=== PATIENT | female | born 1990 | race Caucasian/White ===

== ENCOUNTER 2020-07-26 13:24 | Emergency (ER) | payer MEDICAID, SELFPAY ==
--- NOTE | 2020-07-26 13:56 | US_ITS ---
EXAMINATION: US RETROPERITONEAL LIMITED (RENAL ONLY) CLINICAL INFORMATION: Left flank pain and hematuria. COMPARISON: None TECHNIQUE: Grayscale and Doppler ultrasound of the bilateral kidneys was performed. FINDINGS: RIGHT KIDNEY: 11 x 4 x 4.8 cm (SAG x AP x TRV). The kidney is normal in size, contour, and echogenicity. Renal cortical thickness is normal. No calculi or focal parenchymal lesions. No hydronephrosis. LEFT KIDNEY: 11.4 x 5.4 x 5.4 cm (SAG x AP x TRV). The kidney is normal in size, contour, and echogenicity. Renal cortical thickness is normal. No calculi or focal parenchymal lesions. No hydronephrosis. US/US renal BI IMPRESSION: Unremarkable renal ultrasound.
[2020-07-26 13:57] VITALS: BP 116/77; PULSE 78; RESP 16; TEMP 36.7; O2SAT 99; BMI 26.9
--- NOTE | 2020-07-26 13:58 | ED.ABDPAIN ---
HPI - Abdominal Pain General Chief Complaint: Abdominal Pain Stated Complaint: L FLANK PAIN Time Seen by Provider: 07/26/20 13:50 Source: patient Mode of arrival: ambulatory History of Present Illness HPI narrative: 30-year-old female with a past medical history of recent UTI currently on Amoxicillin and Bactrim from [facility] presenting to ED complaining of continued/worsening left flank pain x1 week. Admits pain radiates to left lower abdomen with associated hematuria. Denies fever, chills, nausea/vomiting, dysuria, vaginal bleeding or discharge MD elicited complaint: abdominal pain Related Data Previous Rx's Medication Instructions Recorded cyclobenzaprine 5 mg PO Q8H PRN 5 Days #14 tab 07/26/20 ketorolac 10 mg PO Q6H PRN 4 Days #10 tab 07/26/20 levofloxacin 750 mg PO DAILY 5 Days #5 tab 07/26/20 Allergies Allergy/AdvReac Type Severity Reaction Status Date / Time No Known Allergies Allergy Unverified 05/29/20 18:22 Review of Systems Review of Systems Constitutional: No Weight loss, No Fever, No Chills Cardiovascular: No Chest Pain, No SOB Respiratory: No Cough, No Sputum, No Dyspnea Gastrointestinal: No Nausea, No Vomiting, No Diarrhea, No Constipation,+ Abdominal pain Genitourinary: No irregular bleeding, No Dysuria, + Hematuria, No Urinary Incontinence, No Urgency, +Flank Pain Musculoskeletal: No joint pain, No Myalgias, No Joint Swelling Skin: No Skin Lesions, No rash Yes all other systems are reviewed and are negative Physical Exam Vital Signs: Vital Signs: Last Vital Signs Temp 98.5 F 07/26/20 15:49 Pulse 69 07/26/20 15:49 Resp 20 07/26/20 15:49 BP 116/67 07/26/20 15:49 Pulse Ox 100 07/26/20 15:49 Body Mass Index 26.9 Const: General: cooperative and healthy appearing Orientation/consciousness: patient oriented x3 Limitations: no limitations HENMT: Head: Yes normal to inspection Ears: hearing grossly normal bilaterally General nose exam: Normal external nose present Face and sinus: Yes normal facial exam Eyes: General: appearance normal, both eyes and all related structures EOM: EOMs intact bilaterally Neck: Neck: Yes normal visual inspection Resp: Effort & Inspection: normal respiratory effort Cardio: Rate: regular rate GI: Inspection: Yes normal to inspection Palpation (GI): Soft to palpation, nontender, no guarding and not rigid : General: Yes CVA tenderness on the left Skin: Rashes: no rashes Wounds: no wounds Neuro: General: patient oriented x3 Gait exam (Neuro): Normal gait present Extrem: General: Yes normal to inspection Course Course Course Narrative: -1445--renal ultrasound unremarkable -1600--no leukocytosis, labs otherwise unremarkable, UA pending -1630--on re-evaluation abdomen still soft and nontender, patient still reporting left flank pain -UA not infected> likely from current antibiotic use. due to patient's symptoms and recent diagnosis of UTI, will switch antibiotics to Levaquin to cover pyelo. 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 She verbalized understanding feel safe for discharge home. MDM - Abdominal Pain MDM Narrative Medical decision making narrative: 30-year-old female with a past medical history of recent UTI currently on Amoxicillin and Bactrim from [facility] presenting to ED complaining of continued/worsening left flank pain x1 week. On exam, appears in pain, abdomen soft/nontender, +L CVAT. Concern for pyelo vs renal stone vs infected stone vs UTI. Lower concern for appendicitis/diverticulitis or ovarian pathology Plan: Labs, UA, renal ultrasound, IVF/symptomatic therapies, reassess Lab Data Result diagrams: 07/26/20 14:43 07/26/20 15:49 Labs: Lab Results 07/26/20 07/26/20 07/26/20 Range/Units 14:43 14:43 14:43 WBC 5.0 (4.8-10.8) X10*3/uL RBC 4.16 L (4.20-5.50) X10*6/uL Hgb 13.1 (12.0-16.0) g/dl Hct 39.0 (37-47) % MCV 93.8 (80-98) fL MCH 31.5 (27.0-33.0) pg MCHC 33.6 (31.0-35.0) g/dl RDW 12.1 (11.0-16.0) % Plt Count 259 (160-400) X10*3/uL MPV 10.7 (9.4-12.3) fL Immature Gran % (Auto) 1.0 H (0.0-0.4) % Neut % (Auto) 60.3 (45-73) % Lymph % (Auto) 27.2 (20-40) % [place] % (Auto) 9.7 (2-11) % Eos % (Auto) 1.4 (0-4) % Baso % (Auto) 0.4 (0-2) % Lymph # (Auto) 1.4 (1.2-4.9) X10*3/uL [place] # (Auto) 0.5 (0.1-1.2) X10*3/uL Eos # (Auto) 0.1 (0.0-0.4) X10*3/uL Baso # (Auto) 0.0 (0.0-0.2) X10*3/uL Abs Immat Gran (auto) 0.05 H (0.00-0.03) X10*3/uL Absolute Neuts (auto) 3.0 (2.0-8.3) X10*3/uL Absolute Nucleated RBC 0.000 (0.0-0.012) X10*3/uL Nucleated RBC % (auto) 0.0 (0.0-0.2) /100WBC Hold Blue Top SEE NOTE Sodium Cancelled Potassium Cancelled Chloride Cancelled Carbon Dioxide Cancelled Anion Gap Cancelled BUN Cancelled Creatinine Cancelled Estim Creat Clear Calc Cancelled Estimated GFR Cancelled Random Glucose Cancelled Calcium Cancelled Magnesium Cancelled Total Bilirubin Cancelled Direct Bilirubin Cancelled AST Cancelled ALT Cancelled Alkaline Phosphatase Cancelled Total Protein Cancelled Albumin Cancelled Urine Color Urine Appearance Urine pH (5.0-8.0) Ur Specific [place] (1.005-1.025) Urine Protein (NEG-TRACE) MG/DL Urine Glucose (UA) (NEG) MG/DL Urine Ketones (NEG) MG/DL Urine Blood (NEG) Urine Nitrite (NEG) Ur Leukocyte Esterase (NEG) Urine RBC (0) /HPF Urine WBC (0-4) /HPF Ur Squamous Epith Cells /LPF Urine Bacteria /LPF Urine Test (NEGATIVE) 07/26/20 07/26/20 Range/Units 15:49 16:39 WBC (4.8-10.8) X10*3/uL RBC (4.20-5.50) X10*6/uL Hgb (12.0-16.0) g/dl Hct (37-47) % MCV (80-98) fL MCH (27.0-33.0) pg MCHC (31.0-35.0) g/dl RDW (11.0-16.0) % Plt Count (160-400) X10*3/uL MPV (9.4-12.3) fL Immature Gran % (Auto) (0.0-0.4) % Neut % (Auto) (45-73) % Lymph % (Auto) (20-40) % [place] % (Auto) (2-11) % Eos % (Auto) (0-4) % Baso % (Auto) (0-2) % Lymph # (Auto) (1.2-4.9) X10*3/uL [place] # (Auto) (0.1-1.2) X10*3/uL Eos # (Auto) (0.0-0.4) X10*3/uL Baso # (Auto) (0.0-0.2) X10*3/uL Abs Immat Gran (auto) (0.00-0.03) X10*3/uL Absolute Neuts (auto) (2.0-8.3) X10*3/uL Absolute Nucleated RBC (0.0-0.012) X10*3/uL Nucleated RBC % (auto) (0.0-0.2) /100WBC Hold Blue Top Sodium 140 Potassium 4.2 Chloride 110 H Carbon Dioxide 20 L Anion Gap 14 BUN 8 L Creatinine 0.72 Estim Creat Clear Calc 124.0 Estimated GFR > 60 Random Glucose 78 Calcium 8.1 L Magnesium 1.9 Total Bilirubin 0.5 Direct Bilirubin 0.2 AST 16 ALT 9 Alkaline Phosphatase 54 Total Protein 6.9 Albumin 4.0 Urine Color YELLOW Urine Appearance CLEAR Urine pH 6.0 (5.0-8.0) Ur Specific [place] 1.010 (1.005-1.025) Urine Protein NEG (NEG-TRACE) MG/DL Urine Glucose (UA) NEG (NEG) MG/DL Urine Ketones 15 (NEG) MG/DL Urine Blood TRACE (NEG) Urine Nitrite NEG (NEG) Ur Leukocyte Esterase NEG (NEG) Urine RBC 0-2 (0) /HPF Urine WBC 1-4 (0-4) /HPF Ur Squamous Epith Cells TRACE /LPF Urine Bacteria 1+ /LPF Urine Test NEGATIVE (NEGATIVE) Discharge Plan Discharge Clinical Impression: Pyelonephritis, Myalgia Patient Disposition: Home, Self-Care Instructions: Kidney Infection (ED) Additional Instructions: Your blood work and ultrasound were reassuring today in the ED You possibly have a kidney infection Levaquin as antibiotic, take as prescribed Stop taking previously prescribed antibiotics Cyclobenzaprine is a muscle relaxer, take at night as makes you drowsy, do not drive, drink alcohol, or operate machinery while taking it in line Ketoralac is an anti-inflammatory pain medication, take with food Follow up with her doctor If pain persists or worsens, you develop abdominal pain, nausea/vomiting, or fever return to the ED Prescriptions: New levofloxacin 750 mg tablet 750 mg PO DAILY 5 Days Qty: 5 RF: 0 ketorolac 10 mg tablet 10 mg PO Q6H PRN (Reason: pain) 4 Days Qty: 10 RF: 0 cyclobenzaprine 5 mg tablet 5 mg PO Q8H PRN (Reason: pain (scale score 7-10)) 5 Days Qty: 14 RF: 0 Referrals: Tracy Lei MD [Primary Care Provider] - 2 days [facility] Past Medical History Attestation statement: The following information was validated with the patient. Social History Social History Alcohol intake: current Alcohol intake frequency: a few times a month Smoking Status: Never smoker Use of substances other than those prescribed or required for medical reasons: No Advance Directives: No Advance Directives Information Provided: No
[2020-07-26] MEDS: 0.9 % Sodium Chloride 1,000 ML 999 ML IVCONT (14:48)
[2020-07-26] MEDS: Ketorolac Tromethamine 15 MG/ML VIAL IVPUSH ×2 (14:48→16:34)
[2020-07-26 14:50] LABS: Basophils Percent Auto 0.4 % (0-2); Eosinophils Absolute Auto 0.1 X10*3/uL (0.0-0.4); Eosinophils Percent Auto 1.4 % (0-4); Hemoglobin 13.1 g/dl (12.0-16.0); Imm Gran Abs Auto 0.05 X10*3/uL (0.00-0.03); Lymphocytes Absolute Auto 1.4 X10*3/uL (1.2-4.9); Lymphocytes Percent Auto 27.2 % (20-40); MANUAL DIFF FLAG NO; Mean Corpuscular HGB Conc 33.6 g/dl (31.0-35.0); Mean Corpuscular Hemoglobin 31.5 pg (27.0-33.0); Mean Corpuscular Volume 93.8 fL (80-98); Mean Platelet Volume 10.7 fL (9.4-12.3); Monocytes Absolute Auto 0.5 X10*3/uL (0.1-1.2); Monocytes Percent Auto 9.7 % (2-11); Neutrophils Percent Auto 60.3 % (45-73); Platelet Count 259 X10*3/uL (160-400); Red Blood Count 4.16 X10*6/uL (4.20-5.50); Red Cell Distribution Width 12.1 % (11.0-16.0)
[2020-07-26 15:49] VITALS: BP 116/67; PULSE 69; RESP 20; TEMP 36.9; O2SAT 100
[2020-07-26 16:00] VITALS: RESP 16
[2020-07-26 16:24] LABS: Alanine Aminotransferase 9 U/L (0-31); Alkaline Phosphatase 54 U/L (39-117); Anion Gap 14 (12-20); Aspartate Amino Transferase 16 U/L (5-31); Bilirubin Direct 0.2 mg/dL (0.0-0.5); Bilirubin Total 0.5 mg/dL (0.0-1.0); Blood Urea Nitrogen 8 mg/dL (9-16); Calcium 8.1 mg/dL (8.4-10.2); Carbon Dioxide 20 mmol/L (22-29); Chloride 110 mmol/L (96-108); Estimated Glomerular Filt Rate > 60; Glucose Random 78 mg/dL (60-115); Magnesium 1.9 mg/dL (1.6-2.6); Potassium 4.2 mmol/l (3.3-5.1); Sodium 140 mmol/L (135-145); Total Protein 6.9 g/dL (6.5-8.0)
[2020-07-26 16:43] LABS: Glucose Urine UA NEG (NEG); Leukocyte Esterase Urine NEG (NEG); Nitrite Urine NEG (NEG); Urine Blood TRACE (NEG); Urine Ketones 15 MG/DL (NEG); Urine Protein NEG (NEG-TRACE)
[2020-07-26 16:58] LABS: Appearance Urine CLEAR; Color Urine YELLOW
[2020-07-26 17:00] LABS: UPreg QC Valid YES; Urine Pregnancy NEGATIVE (NEGATIVE)
[2020-07-26 17:11] LABS: Bacteria Urine 1+ /LPF; RBC Urine 0-2 /HPF (0); Squamous Epithelial Cell Urine TRACE /LPF
[2020-07-26 17:37] VITALS: BP 121/71; PULSE 69; RESP 16; O2SAT 99
[2020-07-26] MEDS: Cyclobenzaprine HCl 5 MG TABLET PO (17:51)
== END 2020-07-26 18:07 | disposition home or self-care (01) ==
PROVIDERS: Physician Assistant; Emergency Provider Emergency Medicine; PCP Internal Medicine
DX: N10 Acute pyelonephritis (principal); M79.10 Myalgia, unspecified site; M54.5 Low back pain; Z79.899 Other long term (current) drug therapy
CPT/HCPCS: 36415; 76775; 80048; 80076; 81001; 81025; 83735; 85025; 96361; 96374; 96376; 99284; J1885

== ENCOUNTER 2020-08-27 15:42 | Outpatient (REF) | payer MEDICAID, SELFPAY | END 2020-08-27 15:43 | disposition home or self-care (01) | LOC: HO.LAB 15:42 | PROVIDERS: Visit Provider Internal Medicine | DX: Z20.828 Contact with and (suspected) exposure to other viral communicable diseases (principal) | CPT/HCPCS: C9803; U0003 ==

== ENCOUNTER → 2020-08-28 13:48 | Outpatient (BNVA) | payer MEDICAID, SELFPAY | PROVIDERS: PCP Internal Medicine; Referring Provider Internal Medicine; Visit Provider Urology | DX: Z76.89 Persons encountering health services in other specified circumstances (principal) | CPT/HCPCS: 99202 ==

== ENCOUNTER 2020-08-30 10:09 | Outpatient (REF) | payer MEDICAID, SELFPAY ==
[2020-08-30 10:41] LABS: MANUAL DIFF FLAG NO
[2020-08-30 10:43] LABS: Basophils Percent Auto 0.9 % (0-2); Eosinophils Absolute Auto 0.1 X10*3/uL (0.0-0.4); Eosinophils Percent Auto 3.3 % (0-4); Hematocrit 36.8 % (37-47); Hemoglobin 12.5 g/dl (12.0-16.0); Imm Gran Abs Auto 0.01 X10*3/uL (0.00-0.03); Imm Gran Pct Auto 0.3 % (0.0-0.4); Lymphocytes Absolute Auto 1.1 X10*3/uL (1.2-4.9); Lymphocytes Percent Auto 32.5 % (20-40); Mean Corpuscular Hemoglobin 31.6 pg (27.0-33.0); Mean Corpuscular Volume 92.9 fL (80-98); Mean Platelet Volume 10.3 fL (9.4-12.3); Monocytes Absolute Auto 0.5 X10*3/uL (0.1-1.2); Monocytes Percent Auto 15.7 % (2-11); Neutrophils Absolute Auto 1.6 X10*3/uL (2.0-8.3); Neutrophils Percent Auto 47.3 % (45-73); Platelet Count 238 X10*3/uL (160-400); Red Blood Count 3.96 X10*6/uL (4.20-5.50); Red Cell Distribution Width 11.7 % (11.0-16.0); White Blood Count 3.4 X10*3/uL (4.8-10.8)
[2020-08-30 11:13] LABS: Alanine Aminotransferase 7 U/L (0-31); Albumin Level 4.1 g/dL (3.5-5.0); Alkaline Phosphatase 57 U/L (39-117); Anion Gap 10 (12-20); Aspartate Amino Transferase 12 U/L (5-31); Bilirubin Total 0.4 mg/dL (0.0-1.0); Blood Urea Nitrogen 10 mg/dL (9-16); Calcium 8.8 mg/dL (8.4-10.2); Carbon Dioxide 26 mmol/L (22-29); Chloride 106 mmol/L (96-108); Cholesterol 136 mg/dL; Estimated Glomerular Filt Rate > 60; Glucose Random 96 mg/dL (60-115); HDL Cholesterol 60 mg/dL; LDL Cholesterol Calculated 70 mg/dl; Potassium 4.2 mmol/l (3.3-5.1); Sodium 138 mmol/L (135-145); Triglycerides 34 mg/dL
[2020-08-30 11:17] LABS: Estimated Average Glucose 103 mg/dL; Hemoglobin A1c % 5.2 %
[2020-08-30 11:31] LABS: Vitamin D 25-OH Total 21.1 ng/mL (>30)
== END 2020-08-30 10:10 | disposition home or self-care (01) ==
LOC: HO.LAB 10:09
PROVIDERS: PCP Nurse Practitioner Family; Visit Provider Nurse Practitioner Family
DX: F41.8 Other specified anxiety disorders (principal); K59.00 Constipation, unspecified
CPT/HCPCS: 36415; 80053; 80061; 82306; 83036; 84443; 85025

== ENCOUNTER 2020-09-01 13:19 | Outpatient (REF) | payer MEDICAID, SELFPAY ==
--- NOTE | 2020-09-01 13:26 | CT_ITS ---
EXAMINATION: CT ABDOMEN AND PELVIS WITHOUT CONTRAST CLINICAL INFORMATION: Abdominal pain, frequency of micturition. COMPARISON: Ultrasound renal 07/26/2020 TECHNIQUE: Multidetector volumetric imaging was performed from the superior aspect of the liver through the pubic symphysis. Sagittal and coronal reformatted images were obtained on the technologist's workstation. This CT examination was performed using dose optimization techniques as appropriate, variously including the following: *Automated exposure control *Adjustment of mA and/or kV according to patient size (this includes techniques or standardized protocols for targeted exams where dose is matched to indication/reason for exam; i.e. extremities or head) *Use of iterative reconstruction technique DLP: 486 mGy-cm FINDINGS: LUNG BASES: The visualized lung bases are unremarkable. LIVER, GALLBLADDER, AND BILIARY TREE: The liver is normal in size, shape, and attenuation. No focal hepatic lesion or biliary ductal dilatation is present. The gallbladder is unremarkable with no evidence of radiopaque gallstones, gallbladder wall thickening, or obvious pericholecystic inflammatory changes. PANCREAS: Unremarkable. SPLEEN: Unremarkable. ADRENAL GLANDS: There is a 9 mm hypodensity medial limb right adrenal gland measuring 23 Hounsfield units on axial image 148/6. Left adrenal gland is unremarkable. KIDNEYS AND URETERS: The kidneys are normal in size, shape, and attenuation. No hydronephrosis, hydroureter, or calculi seen. No perinephric stranding. BLADDER: The bladder is nondistended and appears unremarkable. GASTROINTESTINAL TRACT: Scattered stool is seen throughout the colon without distention. The appendix and the small bowel loops are normal caliber. The stomach is distended with recently ingested food. ABDOMINAL WALL: No significant hernia is appreciated. LYMPH NODES: Normal. VASCULAR: Unremarkable. PELVIC VISCERA: There is a 3.4 x 3.3 cm left ovarian cyst. The uterus is anteverted and appears unremarkable. No solid mass or free fluid seen. No abnormal pelvic lymph nodes. A punctate calcification is seen in the left adnexa axial image 547/6 likely within the fallopian tube on the lateral fundal uterus. It is of no consequence. OSSEOUS STRUCTURES: Unremarkable. CT/CT abdomen pelvis wo con IMPRESSION: 1. No acute intra-abdominal process seen. 2. Left ovarian 3.4 cm cyst noted.
== END 2020-09-01 13:20 | disposition home or self-care (01) ==
LOC: HO.CT 13:19
PROVIDERS: Visit Provider Emergency Medicine
DX: R10.9 Unspecified abdominal pain (principal); R35.0 Frequency of micturition
CPT/HCPCS: 74176

== ENCOUNTER 2021-02-02 15:38 | Outpatient (REF) | payer MEDICAID, SELFPAY ==
--- NOTE | ~2021-02-02 | XR_ITS ---
EXAMINATION: XR LUMBOSACRAL SPINE WITH OBLIQUES CLINICAL INFORMATION: Lower back pain. COMPARISON: CT abdomen/pelvis dated 09/01/2020. TECHNIQUE: AP, lateral, coned-down, bilateral oblique views of the lumbosacral spine. FINDINGS: The vertebral bodies and posterior elements are normal. The disc spaces are preserved and the vertebral alignment is normal. The paraspinal soft tissues are normal. XR/XR lumbar spine 4V min IMPRESSION: Unremarkable examination.
== END 2021-02-02 15:39 | disposition home or self-care (01) ==
LOC: HO.XRAY 15:38
PROVIDERS: PCP Nurse Practitioner Family; Visit Provider Nurse Practitioner Family
DX: M54.5 Low back pain (principal)
CPT/HCPCS: 72110

== ENCOUNTER 2021-02-25 16:18 | Outpatient (REF) | payer MEDICAID, SELFPAY ==
--- NOTE | ~2021-02-25 | US_ITS ---
EXAMINATION: US RETROPERITONEAL LIMITED (RENAL ONLY) CLINICAL INFORMATION: History of hematuria. COMPARISON: CT abdomen and pelvis 09/01/2020. Renal ultrasound 07/26/2020. TECHNIQUE: Real-time imaging of the kidneys. FINDINGS: RIGHT KIDNEY: 11.0 x 4.5 x 4.8 cm (SAG x AP x TRV). The kidney is normal in size, contour, and echogenicity. Renal cortical thickness is normal. No calculi or focal parenchymal lesions. No hydronephrosis. LEFT KIDNEY: 10.8 x 4.8 x 5.3 cm (SAG x AP x TRV). The kidney is normal in size, contour, and echogenicity. Renal cortical thickness is normal. No calculi or focal parenchymal lesions. No hydronephrosis. US/US renal BI IMPRESSION: Normal renal ultrasound.
== END 2021-02-25 16:19 | disposition home or self-care (01) ==
LOC: HO.US 16:18
PROVIDERS: PCP Nurse Practitioner Family; Visit Provider Nurse Practitioner Family
DX: R31.9 Hematuria, unspecified (principal)
CPT/HCPCS: 76775

== ENCOUNTER → 2021-02-27 14:51 | Outpatient (BNVA) | payer MEDICAID, SELFPAY | PROVIDERS: PCP Nurse Practitioner Family; Visit Provider Urology | DX: N12 Tubulo-interstitial nephritis, not specified as acute or chronic (principal) | CPT/HCPCS: 99212 ==

== ENCOUNTER 2021-09-23 08:52 | Outpatient (REF) | payer MEDICAID, SELFPAY ==
[2021-09-23 10:21] LABS: COVID-19 Test Positive (Negative)
== END 2021-09-23 08:53 | disposition home or self-care (01) ==
LOC: HO.LAB 08:52
PROVIDERS: Visit Provider Internal Medicine
DX: Z20.822 Contact with and (suspected) exposure to COVID-19 (principal)
CPT/HCPCS: 87635; C9803

== ENCOUNTER 2022-01-11 14:56 | Outpatient (REF) | payer MEDICAID, SELFPAY ==
--- NOTE | ~2022-01-11 | US_ITS ---
EXAMINATION: US PELVIS CLINICAL INFORMATION: Pelvic pain COMPARISON: Previous CT of the abdomen and pelvis August 2020 TECHNIQUE: Ultrasound of the pelvis is performed using both transabdominal and transvaginal transducers along with Doppler. Transvaginal imaging is performed due to inadequate visualization transabdominally. FINDINGS: The uterus is anteverted and measures 7.7 x 3.7 x 5.6 cm in dimension. No focal uterine lesion is seen. Endometrial thickness is normal measuring 0.4 cm. There is a nabothian cyst in the cervix. Right ovary measures 1.7 x 1.1 x 2.1 cm. There is a 6.7 x 5.3 x 5.8 cm right paraovarian or adnexal simple cyst. The left ovary is normal-appearing and measures 3.2 x 2.2 x 2.7 cm. There is no fluid in the pelvis. US/US pelvic and transvaginal IMPRESSION: 6.7 x 5.3 x 5.8 cm simple right paraovarian or adnexal cyst.
== END 2022-01-11 14:57 | disposition home or self-care (01) ==
LOC: HO.US 14:56
PROVIDERS: PCP General Practice; Visit Provider General Practice
DX: R10.2 Pelvic and perineal pain (principal)
CPT/HCPCS: 76830; 76856

== ENCOUNTER 2022-12-20 12:51 | Outpatient (REF) | payer MEDICAID, SELFPAY ==
--- NOTE | ~2022-12-20 | XR_ITS ---
EXAMINATION: XR CHEST CLINICAL INFORMATION: History of smoking with cough COMPARISON: None available. TECHNIQUE: 2 views of the chest were obtained. FINDINGS: No significant abnormality is noted involving the heart, lungs, mediastinum, bony thorax or soft tissues. XR/XR chest 2V IMPRESSION: Unremarkable examination.
== END 2022-12-20 12:52 | disposition home or self-care (01) ==
LOC: HO.XRAY 12:51
PROVIDERS: PCP General Practice; Visit Provider General Practice
DX: R05.2 Subacute cough (principal)
CPT/HCPCS: 71046

== ENCOUNTER 2023-03-11 13:36 | Outpatient (REF) | payer MEDICAID, SELFPAY | END 2023-03-11 13:37 | disposition home or self-care (01) | LOC: HO.US 13:36 | PROVIDERS: PCP General Practice; Visit Provider Registered Nurse | DX: N94.10 Unspecified dyspareunia (principal) | CPT/HCPCS: 76830; 76856 ==

== ENCOUNTER 2024-02-14 11:21 | Outpatient (REF) | payer MEDICAID, SELFPAY ==
--- NOTE | ~2024-02-14 | XR_ITS ---
EXAMINATION: XR CHEST CLINICAL INFORMATION: Dyspnea on exertion with history of nicotine vaping. COMPARISON: None available. TECHNIQUE: 2 views of the chest were obtained. FINDINGS: The cardiomediastinal silhouette is within normal limits. The lungs are well expanded. No consolidation or effusion. Osseous structures appear normal. XR/XR chest 2V IMPRESSION: No acute cardiopulmonary findings.
[2024-02-14 13:27] LABS: MANUAL DIFF FLAG NO
[2024-02-14 13:36] LABS: Basophils Percent Auto 0.8 % (0-2); Eosinophils Absolute Auto 0.1 X10*3/uL (0.0-0.4); Eosinophils Percent Auto 2.4 % (0-4); Hematocrit 36.5 % (37.0-47.0); Hemoglobin 12.1 g/dl (12.0-16.0); Lymphocytes Absolute Auto 1.2 X10*3/uL (1.2-4.9); Mean Corpuscular HGB Conc 33.2 g/dl (31.0-35.0); Mean Corpuscular Hemoglobin 30.3 pg (27.0-33.0); Mean Corpuscular Volume 91.5 fL (80.0-98.0); Mean Platelet Volume 10.8 fL (9.4-12.3); Monocytes Absolute Auto 0.5 X10*3/uL (0.1-1.2); Monocytes Percent Auto 12.6 % (2-11); Neutrophils Percent Auto 52.2 % (45-73); Platelet Count 256 X10*3/uL (160-400); Red Blood Count 3.99 X10*6/uL (4.20-5.50); Red Cell Distribution Width 12.9 % (11.0-16.0); White Blood Count 3.8 X10*3/uL (4.8-10.8)
[2024-02-14 13:53] LABS: Alanine Aminotransferase 10 U/L (0-31); Albumin Level 4.1 g/dL (3.5-5.0); Alkaline Phosphatase 55 U/L (39-117); Anion Gap 10 (12-20); Aspartate Amino Transferase 14 U/L (5-31); Bilirubin Total 0.3 mg/dL (0.0-1.0); Blood Urea Nitrogen 7 mg/dL (9-16); Calcium 8.7 mg/dL (8.4-10.2); Carbon Dioxide 24 mmol/L (22-29); Chloride 108 mmol/L (96-108); Cholesterol 135 mg/dL (<200); Estimated Glomerular Filt Rate > 60; Glucose Random 96 mg/dL (60-115); HDL Cholesterol 56 mg/dL (>40); LDL Cholesterol Calculated 73 mg/dL (<100); Potassium 4.1 mmol/L (3.3-5.1); Sodium 138 mmol/L (135-145); Triglycerides 33 mg/dL (<150)
== END 2024-02-14 11:22 | disposition home or self-care (01) ==
LOC: HO.HHCL 11:21
PROVIDERS: Visit Provider General Practice
DX: E66.3 Overweight (principal); Z72.0 Tobacco use
CPT/HCPCS: 36415; 71046; 80053; 80061; 85025

== ENCOUNTER 2024-02-21 14:47 | Outpatient (REF) | payer MEDICAID, SELFPAY ==
--- NOTE | ~2024-02-21 | US_ITS ---
EXAMINATION: US PELVIS CLINICAL INFORMATION: Pelvic pain, left lower quadrant pain, last menstrual period 01/14/2024. 1.1 cm fibroid. COMPARISON: 03/11/2023 TECHNIQUE: Ultrasound of the pelvis is performed using both transabdominal and transvaginal transducers along with Doppler. Transvaginal imaging is performed due to inadequate visualization transabdominally. FINDINGS: The uterus is anteverted and measures 9.2 x 4.5 x 5.6 cm. No discrete fibroids are appreciated. Endometrial thickness is 2 mm. Left ovarian 3.3 x 2.9 x 3.4 cm cyst appears simple. Left ovary measures 4.4 x 3.2 x 3.6 cm, volume 36.5 mL. Previously identified fibroid not visualized on the current exam. Right ovary is unremarkable and measures 2.1 x 1.4 x 2.5 cm, volume 5.7 mL. US/US pelvic and transvaginal IMPRESSION: 1. Endometrial thickness is 2 mm. 2. Previously identified fibroid not identified on the current exam. No discrete fibroids appreciated. 3. Left ovarian 3.4 cm complex cyst versus solid mass. Recommend follow-up ultrasound in 6-8 weeks.
== END 2024-02-21 14:48 | disposition home or self-care (01) ==
LOC: HO.US 14:47
PROVIDERS: PCP General Practice; Visit Provider General Practice
DX: R10.2 Pelvic and perineal pain (principal)
CPT/HCPCS: 76830; 76856

== ENCOUNTER 2024-04-09 15:31 | Outpatient (REF) | payer MEDICAID, SELFPAY ==
--- NOTE | ~2024-04-09 | US_ITS ---
EXAMINATION: US PELVIS CLINICAL INFORMATION: Follow-up cyst seen on previous. COMPARISON: February 21, 2024. TECHNIQUE: Ultrasound of the pelvis is performed using both transabdominal and transvaginal transducers along with Doppler. Transvaginal imaging is performed due to inadequate visualization transabdominally. FINDINGS: Uterus is anteverted and measures 8.2 x 4.5 x 5.1 cm. A 1.0 x 0.9 x 0.9 cm fibroid measured 0.9 x 0.8 x 1.1 cm on March 11, 2023. Endometrial thickness is 9 mm. No significant free fluid. Right ovary measures 3.2 x 1.8 x 2.2 cm, volume 6.6 mL. Left ovary measures 4.0 x 2.5 x 3.4 cm, volume 16.0 mL. A 2.7 x 2.2 x 2.0 left ovarian complex cyst with diffuse low-level internal echoes. Left ovarian simple cyst measured 3.3 x 2.9 x 3.4 cm on 02/21/2024 and was not visualized on 03/11/2023. No significant free fluid. Correlation with menstrual history and clinical exam recommended. US/US pelvic and transvaginal IMPRESSION: 1. A 2.7 x 2.2 x 2.0 left ovarian complex cyst with diffuse low-level internal echoes. Left ovarian simple cyst measured 3.3 x 2.9 x 3.4 cm on 02/21/2024 and was not visualized on 03/11/2023. 2. Endometrial thickness is 9 mm. 3. A 1.0 cm fibroid redemonstrated.
== END 2024-04-09 15:32 | disposition home or self-care (01) ==
LOC: HO.US 15:31
PROVIDERS: PCP General Practice; Visit Provider General Practice
DX: N83.202 Unspecified ovarian cyst, left side (principal)
CPT/HCPCS: 76830; 76856

== ENCOUNTER 2024-06-28 16:12 | Outpatient (REF) | payer MEDICAID, SELFPAY ==
--- NOTE | ~2024-06-28 | US_ITS ---
EXAMINATION: US PELVIS CLINICAL INFORMATION: 3 cm ovarian cyst seen on prior ultrasound COMPARISON: 04/09/2024 : A 2.7 x 2.2 x 2.0 left ovarian complex cyst with diffuse low-level internal echoes. Left ovarian simple cyst measured 3.3 x 2.9 x 3.4 cm on 02/21/2024 and was not visualized on 03/11/2023. TECHNIQUE: Ultrasound of the pelvis is performed using both transabdominal and transvaginal transducers along with Doppler. Transvaginal imaging is performed due to inadequate visualization transabdominally. FINDINGS: Uterus: The uterus is anteverted and measures 7.9 x 3.9 x 5.2 cm. The double wall endometrial thickness is 4 mm. The uterus is smooth in contour and has normal myometrial echogenicity. Tiny subcentimeter fibroid is seen near the fundus decreased in size when compared to prior Adnexa: Both ovaries are visualized. There is normal color flow to the adnexa. There is no ovarian torsion. There is no pelvic ascites or fluid collection. Right ovary measures 2.9 x 1.4 x 1.7 cm. Normal follicular cysts are seen. Left ovary measures 3.6 x 2.4 x 2.5 cm. Previously seen complex 2.7 x 2.2 x 2.0 cm has decreased in size measuring 1.9 x 1.9 x 1.7 cm. US/US pelvic and transvaginal IMPRESSION: 1. Decrease in size of left ovarian cyst. Recommend follow-up study in 6 months. 2. Tiny subcentimeter fibroid. Electronically signed by: Oh Santos MD 08/26/2024 10:37 PM [facility]
== END 2024-06-28 16:13 | disposition home or self-care (01) ==
LOC: HO.US 16:12
PROVIDERS: PCP General Practice; Visit Provider General Practice
DX: N83.209 Unspecified ovarian cyst, unspecified side (principal)
CPT/HCPCS: 76830; 76856

== ENCOUNTER 2024-08-15 16:10 | Outpatient (REF) | payer MEDICAID, SELFPAY ==
[2024-08-15 17:51] LABS: Estimated Average Glucose 117 mg/dL; Hemoglobin A1C 113.2912 umol/L; Hemoglobin A1c % 5.7 % (<6.0); Total Hemoglobin (HGBA1C) 2890.0073 umol/L
[2024-08-15 17:56] LABS: Cholesterol 129 mg/dL (<200); HDL Cholesterol 48 mg/dL (>40); LDL Cholesterol Calculated 73 mg/dL (<100); Triglycerides 42 mg/dL (<150)
[2024-08-15 18:10] LABS: TSH reflex Free T4 0.84 uIU/mL (0.32-4.0)
== END 2024-08-15 16:11 | disposition home or self-care (01) ==
LOC: HO.HHCL 16:10
PROVIDERS: Visit Provider General Practice
DX: E66.3 Overweight (principal)
CPT/HCPCS: 36415; 80061; 83036; 84443

== ENCOUNTER 2025-07-22 14:15 | Outpatient (REF) | payer MEDICAID, SELFPAY ==
--- OUTSIDE RECORDS SUMMARY | 2025-07-22 13:30 | XMS_ITS | Encounter Summary ---
Author Organization [employer] Address [address] [facility] 7 [place] [address] Care Team Providers Care Width Stripper Name Role Phone Griselda uJarez MD Primary Care Provider [phone] Reason for Visit * Reason Comments Annual Exam Encounter Details Date Type Department Care Team ([facility] st Contact Info) Description 07/22/2025 1:30 PM EST Office Visit [facility] [address] [place], [place] [phone] Griselda Juarez MD [address] [place], [place] [phone] Overweight (BMI 25.0-29.9) (Primary Dx); Dietary counseling; Exercise counseling; Overweight; Vitamin D deficiency; Anxiety Social History Tobacco Use Types Packs/Day Years Used Date Smoking Tobacco: Never Passive Smoke Exposure: Never Smokeless Tobacco: Current Alcohol Use Standard Drinks/Week Comments Yes 0 (1 standard drink = 0.6 oz pur e alcohol) ocassionally Depression Answer Date Recorded Patient Health Questionnaire-9 Score 6 07/22/2025 Patient Health Questionnaire-9 Score 6 07/22/2025 Last PHQ-9: Questionnaire Data Not on file 1 09/21/2024 Housing Stability Answer Date Recorded What is your housing situation today? I have latasha de paz 07/15/[address] you li ve. Do you have problems with any of the following? None of the above 07/15/2025 Food Insecurity Answer Date Recorded Within the past 12 months, y ou worried that your food would run out before you got money to buy more: Never True 07/15/2025 Within the past 12 months,th e food you bought just didn't last and you didn't have enough money to get more: Never True 11/2024 Transportation Answer Date Recorded In the past 12 months, has l ack of transportation kept you from medical appts, meetings, work or from getting things needed for daily living? No 07/15/2025 Utilities Answer Date Recorded In the past 12 months, has t he electric, gas, oil or water company threatened to shut off services in your home? No 07/15/2025 Depression Answer Date Recorded Patient Health Questionnaire-2 Score 2 07/22/2025 Internet Access Answer Date Recorded Internet Access Q1 Yes 07/15/2025 Internet Access Q2 Not on file 07/15/2025 Comments Unknown Sex and Gender Information Value Date Recorded Sex Assigned at Female 07/12/2022 10:21 AM EDT Legal Sex Female 10:21 AM EDT Gender Identity Female 07/12/2022 10:21 AM EDT Sexual Orientation Choose not to disclose 2021 10:21 AM EDT documented as of this encounter Last Filed Vital Signs Vital Sign Reading Time Taken Comments Blood Pressure 120/64 07/22/2025 1:24 PM EST Pulse 91 07/22/2025 1:24 PM EST Temperature 36.2 C (97.1 F) 07/22/2025 1:24 PM EST Respiratory Rate 20 07/22/2025 1:24 PM EST Oxygen Saturation 99% 07/22/2025 1:24 PM EST Inhaled Oxygen Concentration - - Weight 87.1 kg (192 lb) 07/22/2025 1:24 PM EST Height 170.2 cm (5' 7 ) 07/22/2025 1:24 PM EST Body Mass Index 30.07 07/22/2025 1:24 PM EST documented in this encounter Functional Status * Over the past 2 weeks, how often have you been bothered by any of the following problems? Question Answer Date of Assessment Author Patient Health Questionnaire -2 Score 2 07/22/2025 1:43 PM EST Esteban Watson MA * Little interest or pleasure in doing things Answer Date of Assessment Author Several days 07/22/2025 1:43 PM EST Esteban Watson MA * Feeling down, depressed, or hopeless Answer Date of Assessment Author Several days 07/22/2025 1:43 PM EST Esteban Watson MA * Trouble falling or staying asleep, or sleeping too much Answer Date of Assessment Author More than half the days 07/22/2025 1:43 PM Esteban Islas MA * Feeling tired or having little energy Answer Date of Assessment Author Several days 07/22/2025 1:43 PM Esteban Ellis MA * Poor appetite or overeating Answer Date of Assessment Author Not at all 07/22/2025 1:43 PM Esteban Ellis MA * Feeling bad about yourself - or that you are a failure or have let yourself or your family down Answer Date of Assessment Author Several days 07/22/2025 1:43 PM Esteban Ellis MA * Trouble concentrating on things, such as reading the newspaper or watching television Answer Date of Assessment Author Not at all 07/22/2025 1:43 PM Esteban Ellis MA * Moving or speaking so slowly that other people could have noticed? Or the opposite - being so fidgety or restless that you have been moving around a lot more than usual. Answer Date of Assessment Author Not at all 07/22/2025 1:43 PM Esteban Ellis MA * Thoughts that you would be better off or hurting yourself in some way Answer Date of Assessment Author Not at all 07/22/2025 1:43 PM Esteban Ellis MA * Patient Health Questionnaire-9 Score Answer Date of Assessment Author 6 07/22/2025 1:43 PM Esteban Ellis MA * How difficult have these problems made it for you to do your work, take care of things at home, or get along with other people? Answer Date of Assessment Author Somewhat difficult 07/22/2025 1:43 PM Esteban Zepeda MA documented as of this encounter Plan of Treatment Scheduled Orders Name Type Priority Associated Diagnoses Orde r Schedule TSH W/Reflex to FT4 Lab Routine Overweight (BMI 25.0-29.9) Expected: 07/22/2025 (Approximate), Expires: 07/22/2026 Comprehensive Metabolic Panel Lab Routine Overweight (BMI 25.0-29.9) Expected: 07/22/2025 (Approximate), Expires: 07/22/2026 documented as of this encounter Procedures Procedure Name Priority Date/Time Associated Diagnosis Comments HEMOGLOBIN A1C Routine 07/22/2025 2:21 PM EST Overweight (BMI 25.0-29.9) documented in this encounter Results * Hemoglobin A1c (07/22/2025 2:21 PM EST) Hemoglobin A1c 5.5 <6.0 % [facility] Comment:Hemoglobin A1C Refer ence Range Adults: 4.8 - 6.0 % Non diabetic: < 6.0 % Goal: < 7.0 %Additional Action Suggested: > 8.0 %Note: Hemoglobin A1c results are invalid for patients with abnormal amounts of HbF. Blood transfusions may impact the HbA1c concentration in the patient sample. Estimated Average Glucose 111 mg/dL [facility] Comment:eAG = Estimated ave rage glucose which is %A1C expressed asaverage glucose, using the formula of the Q8T-RvpdfjcLgudesv Glucose study (ADAG), Diabetes Care, Vol.31,#8,Apr. 2007 Blood Venous blood specimen / Unknown 07/22/2025 2:21 PM EST 07/22/2025 3:54 PM EST us Griselda Juarez MD LAB BLOOD ORDERABLES Final Res ult Performing Organization Address City/State/[facility] Co de Phone Number [facility] [address] [place] [phone] documented in this encounter Visit Diagnoses Diagnosis Overweight (BMI 25.0-29.9)- Primary Overweight Dietary counseling Dietary surveillance and counseling Exercise counseling Overweight Vitamin D deficiency Anxiety Anxiety state, unspecified documented in this encounter Additional Health Concerns Assessment Noted Time PHQ-9 Depression Total Score: 6 07/22/20 25 1:43 PM EST documented as of this encounter Care Teams Width Stripper Relationship Specialty Start Date End Date Griselda Juarez MD [address] [place] [address] PCP - General Family Medicine 05/05/21 documented as of this encounter
[2025-07-22 16:18] LABS: Hemoglobin A1C 79.4652 umol/L
--- OUTSIDE RECORDS SUMMARY | 2025-07-22 16:36 | XMS_ITS | Clinical Summary ---
Author Organization [employer] Address [address] [place] [address] 7t [place] [address] Care Team Providers Care It Infrastructure Manager Name Role Phone Griselda Juarez MD Primary Care Provider [phone] Allergies No known active allergies Medications doxycycline (Monodox) 50 MG capsule Take 50 mg by mouth in the morning. 10/17/19 23 Active Hydrocortisone , Perianal, 1 % cream APPLY TO AFFECTED AREA 1 TO 2 TIMES A DAY FOR 10 DAYS 04/22/20 22 Active melatonin 3 MG tablet TAKE 1 OR 2 TABLETS BY MOUTH EVERY DAY AT NIGHT TIME 01/12/20 22 Active lidocaine (Lidoderm) 5 % patch APPLY 1 PATCH EVERY DAY MAY WEAR UP TO 12 HOURS 30 patch 11 02/19/20 23 Active ibuprofen 800 MG tabletIndicati ons:Atypical chest pain TAKE 1 TABLET BY MOUTH 3 TIMES DAILY. 90 tablet 2 02/10/20 24 Active clotrimazole-b etamethasone (Lotrisone) cream apply to affected area twice a day for 7 days 02/09/20 25 Active hydrOXYzine HCl (Atarax) 25 MG tabletIndicati ons:Anxiety Take 0.5 tablets (12.5 mg) by mouth if needed at bedtime for anxiety. 90 tablet 3 07/22/20 25 Active Ashwagandha 120 MG capsule Take 120 mg by mouth Once per day. 90 capsule 3 07/22/20 25 Active Acne Medication 10 10 % gel APPLY TO FACE EVERY MORNING 11/03/19 22 025 Discontinued(Th erapy completed) clindamycin (Clindagel) 1 % gel APPLY TO ENTIRE FACE DAILY AFTER BENZOYL PEROXIDE WASH 11/13/19 23 025 Discontinued(Th erapy completed) ketoconazole (NIZOral) 2 % shampoo APPLY TO SCALP TWICE A WEEK, LEAVE ON FOR 5 MIN, THEN RINSE 11/24/19 025 Discontinued(Th erapy completed) hydrOXYzine HCl (Atarax) 25 MG tabletIndicati ons:Anxiety TAKE 1 TABLET BY MOUTH 15 MINUTES PRIOR TO BEDTIME NEEDED FOR HELP SLEEPING 90 tablet 3 10/20/19 24 025 Discontinued(Re order (will not trigger notification to Pharmacy)) Active Problems Problem Noted Date Diagnosed Date Overweight (BMI 25.0-29.9) 08/15/2024 Vulvar itching 12/23/2023 Overview (07/22/2025): Last Assessment & Plan: Will treat empirically for yeast and send culture for yeast and HSV. Use topical Vaseline for comfort. Vaginal discharge 12/23/2023 Upper respiratory infection, viral 07/08/2023 Assessment & Plan (07/08/2023 7:23 PM EDT): Pt w viral syndrome-Here COVID 19/Flu neg /strep neg Normal VS and normal examination -hydration -mask use -supportive tx -alarm signs and symptoms discussed w pt BRCA2 positive 02/18/2023 Overview (08/15/2024): Diagnosed February 2023 Assessment & Plan (08/15/2024 4:12 PM EST): FH of cousin with from breast cancer at age 36, this month cousin diagnosed with ovarian cancer Assessment & Plan (02/18/2023 4:55 PM EDT): Basic information about testing reviewed today during appt Abnormal genetic test 02/15/2023 Overview (07/22/2025): [facility] [employer] hereditary breast/ovarian cancer screen POSITIVE for BRCA 2 Referred to [facility] for counseling. Annual physical exam 02/01/2023 Assessment & Plan (02/01/2023 9:50 PM EDT): STI labs Has eye care and dentist Subacute cough 11/24/2022 Assessment & Plan (11/24/2022 1:23 PM EDT): Intermittent She is vaping, maybe related to this Will check CXR Strabismus 11/24/2022 Assessment & Plan (11/24/2022 1:24 PM EDT): Check with [facility] vision center about making an appointment from her referral Call [address] to confirm appointment time and take earliest appointment Left ovarian cyst 10/27/2022 Assessment & Plan (08/15/2024 4:11 PM EST): Given pain, persistence of L ovarian cyst, and FH of breast and ovarian cancer diagnosed at a young age, will refer to [facility] gynecology for potential surgery Assessment & Plan (11/24/2022 1:23 PM EDT): 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 Insomnia 10/27/2022 Assessment & Plan (11/24/2022 1:22 PM EDT): Taking Melatonin 1mg nightly, gummy, and this is somewhat helpful without hangover feeling the next day Recurrent urinary tract infection 10/27/2022 Assessment & Plan (02/01/2023 9:49 PM EDT): Increased urinary frequency, will check UA today Did not go to urology appointment Assessment & Plan (11/24/2022 1:23 PM EDT): Asymptomatic currently Did not go to urology appointment Vitamin D deficiency 10/27/2022 Blepharitis 10/21/2021 Anxiety 03/22/2018 Atypical chest pain 03/22/2018 Assessment & Plan (02/01/2023 9:49 PM EDT): Occurs intermittently, mostly in the past Will recheck CBC and TSH STI labs ordered as well, for annual physical Encounters Date Type Department Care Team Description 07/22/2025 1:30 PM EST Office Visit [facility] MEDICINE [address] [place] [phone] Griselda Juarez MD Overweight (BMI 25.0-29.9) (Primary Dx); Dietary counseling; Exercise counseling; Overweight; Vitamin D deficiency; Anxiety 07/22/2025 Refill [facility] MEDICINE [address] [place] [address] Griselda Juarez MD 07/22/2025 Travel 07/15/2025 Patient Outreach [facility] MED[facility]INE [address] [place] [address] Griselda Juarez MD Pre-visit Planning (SDOH Screening negative and Tobacco screening negative) 07/15/2025 Travel from Last 3 Months Immunizations Immunization Administration Dates Next Due Influenza Injectable Quadriv alant Preservative Free IIV4 MDCK 07/22/2022,05/21/2019 Influenza injectable quadriv alent IIV4 with preservative 07/15/2015 Influenza injectable quadriv alent preservative free 06/12/2021,08/29/2020,05/29/2020 Influenza, seasonal, injecta ble, preservative free 08/15/2024 Tdap 03/18/2014 Social History Tobacco Use Types Packs/Day Years Used Date Smoking Tobacco: Never Passive Smoke Exposure: Never Smokeless Tobacco: Current Tobacco Cessation:Ready to Q uit: Not Asked; Counseling Given: Not Answered Alcohol Use Standard Drinks/Week Comments Yes 0 [...] not to disclose 2021 10:21 AM EDT Last Filed Vital Signs Vital Sign Reading [...] Mass Index 30.07 07/22/2025 1:24 PM EST Plan of Treatment Health Maintenance Due Date Last Done Comments Family Planning (PISQ) 2006 HPV Vaccines (1 - 3-dose series) 2006 Hepatitis B Vaccines (1 of 3 - 19+ 3-dose series) 2010 DTaP/Tdap/Td Vaccines (2 - Td or Tdap) 03/18/2024 03/18/2014 COVID-19 Vaccine ( season) 2025 10/22/2021, 01/29/2021, 12/31/2020 Influenza Vaccine (#1) 2025 , 07/22/2022, 06/12/2021, Additional history exists Disability Screening 07/15/2026 07/15/2025 SDOH Screening 07/15/2026 07/15/2025 Alcohol/Substance Use Screening 07/22/2026 07/22/2025 Depression Screening 07/22/2026 07/22/2025, 07/22/20 25 Diabetes: Hemoglobin A1C 07/22/2026 025, 08/15/2024, 01/31/2023, Additional history exists Tobacco Screening 07/22/2026 07/22/2025 Cervical Cancer Screening 02/02/2029 HPV/Cotest 02/02/2029 Pap Smear 02/02/2029 02/03/2024 Lipid Panel 08/15/2029 08/15/2024, 06/0 12/2023, 11/20/2020, Additional history exists Zoster Vaccines (1 of 2) 2041 RSV Patients and Patients Aged 60 years or older (1 - 1-dose 75+ series) 2066 HIV Screening Completed 01/31/2023, 11/30/2021 Hepatitis C Screening Completed 01/31/2023, 022 HIB Vaccines Aged Out No longer eligi ble based on patient's age to complete this topic Hepatitis A Vaccines Aged Out No long er eligible based on patient's age to complete this topic IPV Vaccines Aged Out No longer eligi ble based on patient's age to complete this topic Meningococcal B Vaccine Aged Out No l onger eligible based on patient's age to complete this topic Meningococcal Vaccine Aged Out No joe duglas eligible based on patient's age to complete this topic Pneumococcal Vaccine: Pediatrics (0 to 5 Years) and At-Risk Patients (6 to 49) Years Aged Out No longer eligible based on patient's age to complete this topic RSV under 20 months Aged Out No longe r eligible based on patient's age to complete this topic Rotavirus Vaccines Aged Out No longer eligible based on patient's age to complete this topic Procedures Procedure Name Priority Date/Time Associated Diagnosis Comments HEMOGLOBIN A1C Routine 07/22/2025 2:21 PM EST Overweight (BMI 25.0-29.9) LIPID PANEL, STANDARD Routine 08/15/2024 4:11 PM EST Overweight (BMI 25.0-29.9) HM PAP/HPV Routine 02/03/2024 1:55 PM EDT HEPATITIS C AB W/REFL TO HCV RNA, QN, PCR Routine 01/31/2023 1:53 PM EDT Recurrent urinary tract infection HIV 1 RNA, QUANTITATIVE REAL TIME PCR Routine 01/31/2023 1:53 PM EDT Recurrent urinary tract infection from Last 3 Months or Most Recently Relevant to Health Maintenance Results * Hemoglobin A1c (07/22/2025 2:21 PM EST) Hemoglobin A1c 5.5 <6.0 % [facility] Comment:Hemoglobin A1C Refer ence Range Adults: 4.8 - 6.0 % Non diabetic: < 6.0 % Goal: < 7.0 %Additional Action Suggested: > 8.0 %Note: Hemoglobin A1c results are invalid for patients with abnormal amounts of HbF. Blood transfusions may impact the HbA1c concentration in the patient sample. Estimated Average Glucose 111 mg/dL [facility] Comment:eAG = Estimated ave rage glucose which is %A1C expressed asaverage glucose, using the formula of the B8W-HxnklzsSkoinkn Glucose study (ADAG), Diabetes Care, Vol.31,#8,Apr. 2007 Blood Venous blood specimen / Unknown 07/22/2025 2:21 PM EST 07/22/2025 3:54 PM EST us Griselda Juarez MD LAB BLOOD ORDERABLES Final Res ult [facility] [address] [place] [phone] * Lipid Panel, Standard (08/15/2024 4:11 PM EST) Triglycerides 42 <150 mg/dL [facility] Comment:Desirable Triglyceri de: less than 150 mg/dLBorderline High Triglyceride 150-199 mg/dLHigh Triglyceride: 200-499 mg/dLVery High Triglyceride: greater than or equal to 5OO mg/dL Cholesterol 129 <200 mg/dL [facility] Comment:Desirable Cholestero l: less than 200 mg/dLBorderline High Cholesterol: 200-239 mg/dLHigh Cholesterol: greater than 239 mg/dL LDL Cholesterol Calculated 73 <100 mg/dL [facility] Comment:Desirable LDL: less than 100 mg/dLNear Optimal/Above Optimal LDL: 110- 129 mg/dLBorderline High LDL: 130-159 mg/dLHigh LDL: 160-189 mg/dLVery High LDL: greater than or equal to 190 mg/dL HDL Cholesterol 48 >40 mg/dL [facility] Comment:Desirable HDL: great er than 40 mg/dL Note: This HDL assay may give artificially low results in patients with liver disease. Blood Venous blood specimen / Unknown 08/15/2024 4:11 PM EST 08/15/2024 5:33 PM EST Griselda Juarez MD LAB BLOOD ORDERABLES Final Res ult [facility] [address] [place] [phone] * HM PAP/HPV (02/03/2024 1:55 PM EDT) Historical Provider HEALTH MAINTENANCE Final Result * Hepatitis C Antibody with Reflex to HCV, RNA, Quantitative, Real-Time PCR (01/31/2023 1:53 PM EDT) Hepatitis C Antibody NON-REACT CHUY NON-REACT CHUY [employer] Index 0.11 <1.00 [employer] Comment: HCV antibody was non-reactive. There is no laboratory evidence of HCV infection. In most cases, no further action is required. However, if recent HCV exposure is suspected, a test for HCV RNA (test code 27569) is suggested. For additional information please refer to http://education.[employer])/faq/VWA37j8 (This link is being provided for informational/ educational purposes only.) Blood Venous blood specimen / Unknown 01/31/2023 1:53 PM EDT 01/31/2023 1:54 PM EDT Narrative [facility] - 02/02/2023 6:45 PM EDT FASTING:UNKNOWN FASTING: UNKNOWN Griselda Juarez MD LAB BLOOD ORDERABLES Final Res ult Performing Organization Address City/[facility]/ZIP Co de Phone Number [facility] [address], [facility] [place] [phone] [employer] [place] [employer] [address] [place] [phone] * HIV-1 RNA, Quantitative, Real-Time PCR (01/31/2023 1:53 PM EDT) [facility] HIV 1 RNA, QN PCR NOT DETECTED NOT DETECTED copies/mL [employer] [place] [employer] HIV 1 RNA, QN PCR NOT DETECTED NOT DETECTED Log copies/mL [employer] [place] [employer] Comment: This test was performed using Real-Time Polymerase Chain Reaction. Reportable Range: 20 copies/mL to 10,000,000 copies/mL (1.30 log copies/mL to 7.00 log copies/mL). Blood Venous blood specimen / Unknown 01/31/2023 1:53 PM EDT 01/31/2023 1:54 PM EDT [facility] - 02/02/2023 6:45 PM EDT FASTING:UNKNOWN FASTING: UNKNOWN Griselda Juarez MD LAB BLOOD ORDERABLES Final Res ult Performing Organization Address [facility] Co de Phone Number [facility] [address], [place] [phone] [employer] [place] [employer] [address] [place] [phone] from Last 3 Months or Most Recently Relevant to Health Maintenance Insurance [facility] C3 Care Teams It Infrastructure Manager Relationship Specialty Start Date End Date Griselda Juarez MD [address] [place] [phone] PCP - General Family Medicine 05/05/21
--- OUTSIDE RECORDS SUMMARY | 2025-07-22 16:36 | XMS_ITS | Encounter Summary ---
Author Organization [employer] Address [address] [facility] 7t [place] [address] Care Team Providers Care Bowling Alley Manager Name Role Phone Griselda Juarez MD Primary Care Provider [phone] Reason for Visit * Reason Comments Med Change Request Encounter Details Date Type Department Care Team ([facility] st Contact Info) Description 07/22/2025 Refill [facility] MEDICINE [address] [place] [address] Griselda Juarez MD [address] [place], [place] [phone] Social History Tobacco Use Types Packs/Day Years [...] AM EDT documented as of this encounter Functional Status * Over the past 2 weeks, how often have you been bothered by any of the following problems? Question Answer Date of Assessment Author Patient Health Questionnaire -2 Score 2 07/22/2025 1:43 PM Esteban Ellis MA * Little interest or pleasure in doing things Answer Date of Assessment Author Several days 07/22/2025 1:43 PM Esteban Ellis MA * Feeling down, depressed, or hopeless Answer Date of Assessment Author Several days 07/22/2025 1:43 PM Esteban Ellis MA * Trouble falling or staying asleep, [...] as of this encounter Plan of Treatment Not on file documented as of this encounter Visit Diagnoses Not on filedocumented in this encounter Additional Health Concerns Assessment Noted Time PHQ-9 Depression Total Score: 6 07/22/20 25 1:43 PM EST documented as of this encounter Care Teams Bowling Alley Manager Relationship Specialty Start Date End Date Griselda Juarez MD [address] [place] [address] PCP - General Family Medicine 05/05/21 documented as of this encounter
--- OUTSIDE RECORDS SUMMARY | 2025-07-22 16:36 | XMS_ITS | Encounter Summary ---
Author Organization [employer] Address [address] [place] [address] 7 [place] [address] Care Team Providers Care Life Management Teacher Name Role Phone Griselda Juarez MD Primary Care Provider [phone] Reason for Referral * Imaging (Routine) - Closed Specialty Diagnoses / Procedures Referred By Simran aguillon Referred To Contact Radiology Diagnoses Cyst of left ovary Procedures US Pelvis Transvaginal Griselda Juarez MD [address] [place] [address] Phone: tel: fax: [address] Phone: tel: fax: Referral ID Status Reason Start Date Expiration Date Visits Re quested Visits Authorized [id number] Closed 03/07/2024 03/07/2025 1 1 * Imaging (Routine) - Closed Specialty Diagnoses / Procedures Referred By Contac t Referred To Contact Radiology Diagnoses Cyst of left ovary Procedures Us Pelvis complete Griselda Juarez MD [address] [place] [address] Phone: tel: fax: [address] Phone: tel: fax: Referral ID Status Reason Start Date Expiration Date Visits Re quested Visits Authorized [id number] Closed 03/07/2024 03/07/2025 1 1 Encounter Details Date Type Department Care Team (Late st Contact Info) Description 03/07/2024 Orders Only [facility] [address] [facility] [place] [address] Griselda Juarez MD [address] [facility] [address] Cyst of left ovary (Primary Dx) Social History Tobacco Use Types Packs/Day Years Used Date Smoking Tobacco: Never Passive Smoke Exposure: Never Smokeless Tobacco: Current Alcohol Use Standard Drinks/Week Comments Yes 0 (1 standard drink = 0.6 oz pur e alcohol) ocassionally Depression Answer Date Recorded Patient Health Questionnaire-9 Score 0 02/14/2024 Patient Health Questionnaire-9 Score 0 02/14/2024 Last PHQ-9: Questionnaire Data Not on file 0 02/14/2024 Housing Stability Answer Date Recorded What is your housing situation today? I have latasha de paz 02/07/[address] you li ve. Do you have problems with any of the following? None of the above 02/07/2024 Food Insecurity Answer Date Recorded Within the past 12 months, y ou worried that your food would run out before you got money to buy more: Never True 02/07/2024 Within the past 12 months,th e food you bought just didn't last and you didn't have enough money to get more: Never True Transportation Answer Date Recorded In the past 12 months, has l ack of transportation kept you from medical appts, meetings, work or from getting things needed for daily living? Yes, it has kept me from medical appointments or getting medications. 02/14/2024 Utilities Answer Date Recorded In the past 12 months, has t he electric, gas, oil or water company threatened to shut off services in your home? No 02/07/2024 Depression Answer Date Recorded Patient Health Questionnaire-2 Score 0 02/14/2024 Comments Unknown Sex and Gender Information Value Date Recorded Sex Assigned at Female 07/12/2022 10:21 AM EDT Legal Sex Female 10:21 AM EDT Gender Identity Female 07/12/2022 10:21 AM EDT Sexual Orientation Choose not to disclose 2021 10:21 AM EDT documented as of this encounter Plan of Treatment Scheduled Orders Name Type Priority Associated Diagnoses Orde r Schedule Us Pelvis complete Imaging Routine Cyst of left ovary Expected: 03/07/2024, Expires: 03/07/2025 documented as of this encounter Procedures Procedure Name Priority Date/Time Associated Diagnosis Comments US PELVIS TRANSVAGINAL Routine 04/09/2024 3:54 PM EDT Cyst of left ovary documented in this encounter Results * US Pelvis Transvaginal (04/09/2024 3:54 PM EDT) Anatomical Region Laterality Modality Pelvis Ultrasound 04/09/2024 3:54 PM EDT Narrative 04/24/2024 6:59 AM EDT [address] [address] Ultrasound Report Signed Patient: Lemuel Ortega MR#: [id number] [birth year] : 1990 Acct:[id number] Age/Sex: 33 / F ADM Date: 04/09/24 Loc: HO.US Attending Dr: Griselda Juarez MD Ordering Physician: Griselda Juarez Date of Service: 04/09/24 Procedure(s): US pelvic and transvaginal Accession Number(s): [id number] cc: Griselda Juarez EXAMINATION: US PELVIS CLINICAL INFORMATION: Follow-up cyst seen on previous. COMPARISON: February 21, 2024. TECHNIQUE: Ultrasound of the pelvis is performed using both transabdominal and transvaginal transducers along with Doppler. Transvaginal imaging is performed due to inadequate visualization transabdominally. FINDINGS: Uterus is anteverted and measures 8.2 x 4.5 x 5.1 cm. A 1.0 x 0.9 x 0.9 cm fibroid measured 0.9 x 0.8 x 1.1 cm on March 11, 2023. Endometrial thickness is 9 mm. No significant free fluid. Right ovary measures 3.2 x 1.8 x 2.2 cm, volume 6.6 mL. Left ovary measures 4.0 x 2.5 x 3.4 cm, volume 16.0 mL. A 2.7 x 2.2 x 2.0 left ovarian complex cyst with diffuse low-level internal echoes. Left ovarian simple cyst measured 3.3 x 2.9 x 3.4 cm on 02/21/2024 and was not visualized on 03/11/2023. No significant free fluid. Correlation with menstrual history and clinical exam recommended. US/US pelvic and transvaginal IMPRESSION: 1. A 2.7 x 2.2 x 2.0 left ovarian complex cyst with diffuse low-level internal echoes. Left ovarian simple cyst measured 3.3 x 2.9 x 3.4 cm on 02/21/2024 and was not visualized on 03/11/2023. 2. Endometrial thickness is 9 mm. 3. A 1.0 cm fibroid redemonstrated. Dictated By: Cande Joya MD Signed By: <Electronically signed by Cande Joya MD in OV> 04/24/24 0655 DD/ 1554 TD/TT: Flexo Folder Gluer Operator: Procedure Note Donotuseinterpreter, Image - 04/24/2024 [place] [address] Ultrasound Report Signed Patient: Lemuel OrtegaMR#: [id number] [birth year] : 1990Acct:[id number] Age/Sex: 33 / FADM Date: 04/09/24 Loc: .US Attending Dr: Griselda Juarez MD Ordering Physician: Griselda Juarez Date of Service: 04/09/24 Procedure(s): US pelvic and transvaginal Accession Number(s): [id number] cc: Griselda Juarez EXAMINATION: US PELVIS CLINICAL INFORMATION: Follow-up cyst seen on previous. COMPARISON: February 21, 2024. TECHNIQUE: Ultrasound of the pelvis is performed using both transabdominal and transvaginal transducers along with Doppler. Transvaginal imaging is performed due to inadequate visualization transabdominally. FINDINGS: Uterus is anteverted and measures 8.2 x 4.5 x 5.1 cm. A 1.0 x 0.9 x 0.9 cm fibroid measured 0.9 x 0.8 x 1.1 cm on March 11, 2023. Endometrial thickness is 9 mm. No significant free fluid. Right ovary measures 3.2 x 1.8 x 2.2 cm, volume 6.6 mL. Left ovary measures 4.0 x 2.5 x 3.4 cm, volume 16.0 mL. A 2.7 x 2.2 x 2.0 left ovarian complex cyst with diffuse low-level internal echoes. Left ovarian simple cyst measured 3.3 x 2.9 x 3.4 cm on 02/21/2024 and was not visualized on 03/11/2023. No significant free fluid. Correlation with menstrual history and clinical exam recommended. US/US pelvic and transvaginal IMPRESSION: 1. A 2.7 x 2.2 x 2.0 left ovarian complex cyst with diffuse low-level internal echoes. Left ovarian simple cyst measured 3.3 x 2.9 x 3.4 cm on 02/21/2024 and was not visualized on 03/11/2023. 2. Endometrial thickness is 9 mm. 3. A 1.0 cm fibroid redemonstrated. Dictated By: Cande Joya MD Signed By: <Electronically signed by Cande Joya MD in OV> 04/24/24 0655 DD/ 1554 TD/TT: Flexo Folder Gluer Operator: us Griselda Juarez MD IMG US PROCEDURES Edited Resul t - Final documented in this encounter Visit Diagnoses Diagnosis Cyst of left ovary- Primary Other and unspecified ovarian cyst documented in this encounter Additional Health Concerns Assessment Noted Time PHQ-9 Depression Total Score: 0 02/14/20 24 10:48 AM EDT documented as of this encounter Care Teams Life Management Teacher Relationship Specialty Start Date End Date Griselda Juarez MD [address] [place] [address] PCP - General Family Medicine 05/05/21 documented as of this encounter
--- OUTSIDE RECORDS SUMMARY | 2025-07-22 16:36 | XMS_ITS | Encounter Summary ---
Author Organization [employer] Address [address] [facility] [address] [place] [address] Care Team Providers Care Shank Turner Name Role Phone Griselda Juarez MD Primary Care Provider [phone] Encounter Details Date Type Department Care Team ([facility] st Contact Info) Description 10/22/2022 Orders Only [facility] MED & PEDS [address] [place] [address] Nati Warren LPN Social History Tobacco Use Types Packs/Day Years Used Date Smoking Tobacco: Never Assessed Comments Unknown Sex and Gender Information Value [...] Diagnoses Not on filedocumented in this encounter Care Teams Shank Turner Relationship Specialty Start Date End Date Griselda Juarez MD [address] [place] [address] PCP - General Family Medicine 05/05/21 documented as of this encounter
--- OUTSIDE RECORDS SUMMARY | 2025-07-22 16:36 | XMS_ITS | Encounter Summary ---
Author Organization [employer] Address [address] [place] [address] 7 [place] [address] Care Team Providers Care Area Director Of Home Health Sales Name Role Phone Griselda Juarez MD Primary Care Provider [phone] Reason for Referral * Imaging (Routine) - Closed Specialty Diagnoses / Procedures Referred By Simran t Referred To Contact Radiology Diagnoses Cyst of ovary, unspecified laterality Procedures US Pelvis Transvaginal Griselda Juarez MD [address] [place] [address] Phone: tel: fax: [address] Phone: tel: fax: Referral ID Status Reason Start Date Expiration Date Visits Re quested Visits Authorized [id number] Closed 06/13/2024 06/13/2025 1 1 * Imaging (Routine) - Closed Specialty Diagnoses / Procedures Referred By Contac t Referred To Contact Radiology Diagnoses Cyst of ovary, unspecified laterality Procedures Us Pelvis complete Griselda Juarez MD [address] [place] [address] Phone: tel: fax: [address] Phone: tel: fax: Referral ID Status Reason Start Date Expiration Date Visits Re quested Visits Authorized [id number] Closed 06/13/2024 06/13/2025 1 1 Encounter Details Date Type Department Care Team (Late st Contact Info) Description 06/13/2024 Orders Only [facility] [address] [facility] [place] [address] Griselda Juarez MD [address] [facility] [place] [address] Cyst of ovary, unspecified laterality (Primary Dx) Social History Tobacco Use Types [...] Us Pelvis complete Imaging Routine Cyst of ovary, unspecified laterality Expected: 06/13/2024, Expires: 06/13/2025 documented as of this encounter Procedures Procedure Name Priority Date/Time Associated Diagnosis Comments US PELVIS TRANSVAGINAL Routine 06/28/2024 4:51 PM EDT Cyst of ovary, unspecified laterality documented in this encounter Results * US Pelvis Transvaginal (06/28/2024 4:51 PM EDT) Anatomical Region Laterality Modality Pelvis Ultrasound 06/28/2024 4:51 PM EDT Narrative 08/26/2024 10:39 PM [place] [address] Ultrasound Report Signed Patient: Lemuel Ortega MR#: [id number] [birth year] : 1990 Acct:[id number] Age/Sex: 33 / F ADM Date: 06/28/24 Loc: HO.US Attending Dr: Griselda Juarez MD Ordering Physician: Griselda Juarez Date of Service: 06/28/24 Procedure(s): US pelvic and transvaginal Accession Number(s): [id number] cc: Griselda Juarez EXAMINATION: US PELVIS CLINICAL INFORMATION: 3 cm ovarian cyst seen on prior ultrasound COMPARISON: 04/09/2024 : A 2.7 x 2.2 x 2.0 left ovarian complex cyst with diffuse low-level internal echoes. Left ovarian simple cyst measured 3.3 x 2.9 x 3.4 cm on 02/21/2024 and was not visualized on 03/11/2023. TECHNIQUE: Ultrasound of the pelvis is performed using both transabdominal and transvaginal transducers along with Doppler. Transvaginal imaging is performed due to inadequate visualization transabdominally. FINDINGS: Uterus: The uterus is anteverted and measures 7.9 x 3.9 x 5.2 cm. The double wall endometrial thickness is 4 mm. The uterus is smooth in contour and has normal myometrial echogenicity. Tiny subcentimeter fibroid is seen near the fundus decreased in size when compared to prior Adnexa: Both ovaries are visualized. There is normal color flow to the adnexa. There is no ovarian torsion. There is no pelvic ascites or fluid collection. Right ovary measures 2.9 x 1.4 x 1.7 cm. Normal follicular cysts are seen. Left ovary measures 3.6 x 2.4 x 2.5 cm. Previously seen complex 2.7 x 2.2 x 2.0 cm has decreased in size measuring 1.9 x 1.9 x 1.7 cm. US/US pelvic and transvaginal IMPRESSION: 1. Decrease in size of left ovarian cyst. Recommend follow-up study in 6 months. 2. Tiny subcentimeter fibroid. Electronically signed by: Oh Santos MD 08/26/2024 10:37 PM [facility] Dictated By: Oh Santos MD Signed By: <Electronically signed by Oh Santos MD in OV> 08/26/242236 DD/ 1651 TD/TT: 06/28/24 1714 Metal Finish Inspector: SS Procedure Note Donotuseinterpreter, Image - 08/26/2024 [place] [address] Ultrasound Report Signed Patient: Lemuel OrtegaMR#: [id number] [birth year] : 1990Acct:[id number] Age/Sex: 33 / FADM Date: 06/28/24 Loc: HO.US Attending Dr: Griselda Juarez MD Ordering Physician: Griselda Juarez Date of Service: 06/28/24 Procedure(s): US pelvic and transvaginal Accession Number(s): [id number] cc: Griselda Juarez EXAMINATION: US PELVIS CLINICAL INFORMATION: 3 cm ovarian cyst seen on prior ultrasound COMPARISON: 04/09/2024 : A 2.7 x 2.2 x 2.0 left ovarian complex cyst with diffuse low-level internal echoes. Left ovarian simple cyst measured 3.3 x 2.9 x 3.4 cm on 02/21/2024 and was not visualized on 03/11/2023. TECHNIQUE: Ultrasound of the pelvis is performed using both transabdominal and transvaginal transducers along with Doppler. Transvaginal imaging is performed due to inadequate visualization transabdominally. FINDINGS: Uterus: The uterus is anteverted and measures 7.9 x 3.9 x 5.2 cm. The double wall endometrial thickness is 4 mm. The uterus is smooth in contour and has normal myometrial echogenicity. Tiny subcentimeter fibroid is seen near the fundus decreased in size when compared to prior Adnexa: Both ovaries are visualized. There is normal color flow to the adnexa. There is no ovarian torsion. There is no pelvic ascites or fluid collection. Right ovary measures 2.9 x 1.4 x 1.7 cm. Normal follicular cysts are seen. Left ovary measures 3.6 x 2.4 x 2.5 cm. Previously seen complex 2.7 x 2.2 x 2.0 cm has decreased in size measuring 1.9 x 1.9 x 1.7 cm. US/US pelvic and transvaginal IMPRESSION: 1. Decrease in size of left ovarian cyst. Recommend follow-up study in 6 months. 2. Tiny subcentimeter fibroid. Electronically signed by: Oh Santos MD 08/26/2024 10:37 PM [facility] Dictated By: Oh Santos MD Signed By: <Electronically signed by Oh Santos MD in OV> 08/26/24 2237 DD/ 1651 TD/TT: 06/28/24 1714 Metal Finish Inspector: us Griselda Juarez MD [facility] US PROCEDURES Edited Resul t - Final documented in this encounter Visit Diagnoses Diagnosis Cyst of ovary, unspecified laterality- Primary documented in this encounter Additional Health Concerns Assessment Noted Time PHQ-9 Depression Total Score: 0 02/14/20 24 10:48 AM EDT documented as of this encounter Care Teams Area Director Of Home Health Sales Relationship Specialty Start Date End Date Griselda Juarez MD [address] [place] [address] PCP - General Family Medicine 05/05/21 documented as of this encounter
--- OUTSIDE RECORDS SUMMARY | 2025-07-22 16:36 | XMS_ITS | Encounter Summary ---
Author Organization [employer] Address [address] [facility] [address] [place] [address] Care Team Providers Care Hinging Machine Operator Name Role Phone Griselda Juarez MD Primary Care Provider [phone] Encounter Details Date Type Department Care Team (Latest Contact Info) Description 07/22/2025 Travel Social History Tobacco Use Types Packs/Day Years [...] documented as of this encounter Care Teams Hinging Machine Operator Relationship Specialty Start Date End Date Griselda Juarez MD [address] [place] [address] PCP - General Family Medicine 05/05/21 documented as of this encounter
--- OUTSIDE RECORDS SUMMARY | 2025-07-22 16:37 | XMS_ITS | Clinical Summary ---
Author Organization [facility] [place] [address] Phone Care Team Providers Care Hull Molder Name Role Phone Jethro Breen MD Primary Care Provider Allergies No known active allergies Medications fluconazole (DIFLUCAN) 150 mg tablet Take 1 tab by mouth now. May repeat in 72 hours if still symptomatic. 2 tablet 02/13/20 25 Active Additional Information Patient not taking.Reported on 03/11/2025 spironolactone (ALDACTONE) 50 mg tablet Take 1 tablet (50 mg total) by mouth 1 (one) time each day. 02/20/20 25 Active etonogestrel-elu ting contraceptive device (Nexplanon) 68 mg implant subdermal implant Inject 68 mg into the skin Once. 05/05/20 23 2024 Discontinued Hospital, Clinic, or Other Facility Administered Medication Ordered Dose Route Frequency Start Date End Date Status copper (PARAGARD) 380 square mm IUDIndications:Encou nter for IUD insertion, control counseling utrn Once 07/10/2025 Active copper (PARAGARD) 380 square mm IUD 1 Intra Uterine DeviceIndications:En counter for IUD insertion 1 Intra Uterine Device utrn Once PRN Procedure 07/10/2025 07/10/2025 Ended Active Problems Problem Noted Date Diagnosed Date Overweight (BMI 25.0-29.9) 08/15/2024 Vaginal discharge 12/23/2023 Vulvar itching 12/23/2023 Overview (10/10/2024): Last Assessment & Plan: Will treat empirically for yeast and send culture for yeast and HSV. Use topical Vaseline for comfort. Upper respiratory infection, viral 07/08/2023 BRCA2 gene mutation positive in female Overview (02/05/2025): Enhanced screening Monthly self breast exam Clinical breast exam q 6-12 mom Breast mammo annual Breast MRI annual Abnormal genetic test 02/15/2023 Overview (10/10/2024): [employer] [facility] hereditary breast/ovarian cancer screen POSITIVE for BRCA 2 Referred to [facility] for counseling. Strabismus 11/24/2022 Subacute cough 11/24/2022 Insomnia 10/27/2022 Left ovarian cyst 10/27/2022 Recurrent urinary tract infection 10/27/2022 Vitamin D deficiency 10/27/2022 Blepharitis 10/21/2021 Anxiety 03/22/2018 Atypical chest pain 03/22/2018 Encounters Date Type Department Care Team Description 07/12/2025 Results Follow-Up Obstetrics and Gynecology - [address] [phone] Marielos Metcalf CNM 07/10/2025 2:45 PM EDT Procedure visit Obstetrics & Gynecology - [address] [phone] Marielos Metcalf CNM Encounter for IUD insertion (Primary Dx); Screen for STD (sexually transmitted disease); control counseling; test negative 06/08/2025 10:56 AM EDT - 06/08/2025 11:59 PM EDT Hospital Encounter Radiology Department - [address] [phone] Encounter for screening mammogram for breast cancer Discharge Disposition: Home or Self Care 04/22/2025 3:03 PM EDT - 04/22/2025 11:59 PM EDT Hospital Encounter [address] [phone] Encounter for well woman exam with routine gynecological exam; BRCA gene mutation positive in female; Family history of breast cancer Discharge Disposition: Home or Self Care from Last 3 Months Immunizations Immunization Administration Dates Next Due Influenza Quadravalent, MDCK , 0.5ml, preservative free (Flucelvax) 6mo and older 07/22/2022,05/21/2019 Influenza Quadrivalent, 0.5m l, preservative free (Fluarix; FluLaval; Fluzone) ages 6mo and older (Afluria) 3yo and older 06/12/2021,08/29/2020,05/29/2020 Influenza Quadrivalent, with preservative (Fluzone; Afluria) 6mo and older 07/15/2015 Influenza trivalent, 0.5mL, preservative free (Fluarix; FluLaval; Fluzone) ages 6mo and older (Afluria) 3 years and older 08/15/2024 Moderna SARS-CoV-2 COVID-19, mRNA, LNP-S, preservative free 10/22/2021,01/29/2021,12/31/2020 PPD Test 03/29/2017 Tdap Tetanus diptheria acell ular pertussis (Boostrix; Adacel) 7yo and older 03/18/2014 Surgical History Surgery Date Site/Laterality Comments TONSILLECTOMY PROCEDURE: HISTORICAL TONSILLECTOMY Medical History Medical History Date Comments Anemia DX:Anemia Anxiety 03/22/2018 Family History Medical History Relation Name Comments Breast cancer Aunt 1 p 45 Hypertension Aunt 2 Hypertension Father Diabetes Maternal Grandmother No Known Problems Mother Breast cancer Other p cousin 36 Diabetes Paternal Grandmother No Known Problems Sister Colon cancer Neg Hx Ovarian cancer Neg Hx Prostate cancer Neg Hx Relation Name Status Comments Aunt 1 p 45 Alive Aunt 2 Father Alive Maternal Grandfather Maternal Grandmother Mother Alive Other p cousin 36 Paternal Grandfather Paternal Grandmother Sister Alive Social History Tobacco Use Types Packs/Day Years Used Date Smoking Tobacco: Never Smokeless Tobacco: Never Alcohol Use Standard Drinks/Week Comments No 0 (1 standard drink = 0.6 oz pur e alcohol) Housing Instability Answer Date Recorde d Are you worried that in the next 2 months you may not have stable housing? No 02/04/2025 Food Access & Nutrition Answer Date Rec orded Do you have access to a vari ety of food including fruits and vegetables? No 02/04/2025 Health Literacy Answer Date Recorded How often do you need to hav e someone help you when you read instructions, pamphlets, or other written material from your doctor or pharmacy? Never 02/04/2025 Caregiver: How often do you need to have someone help you when you read instructions, pamphlets, or other written material from your doctor or pharmacy? Not on file 02/04/2025 Financial Risk Answer Date Recorded How hard is it for you to pa y for the very basics like food, housing, medical care, and air conditioning / heating? Unable to respond 02/04/2025 Transportation Answer Date Recorded Has the lack of transportati on kept you from meetings, work, or from getting things needed for daily living? No Has the lack of transportati on kept you from medical appointments or from getting medications? No 02/04/2025 Social Isolation Answer Date Recorded How often do you feel lonely or isolated from th ose around you? Never 02/04/2025 Food Risk Answer Date Recorded Within the past 12 months we worried whether our food would run out before we got money to buy more. Never true 02/04/2025 Within the past 12 months th e food we bought just didn't last and we didn't have money to get more. Never true 02/04/2025 Dependent Care Answer Date Recorded Do you need help finding or paying for care for your loved ones. For example, director maternal child or elderly care for an older adult? No 02/04/2025 Education Answer Date Recorded Do you think completing more education or training, like finishing a GED, going to college, or learning a trade, would be helpful for you? No 02/04/2025 Employment and Income Answer Date Recor ded During the last four weeks, have you been actively looking for work? No 02/04/2025 Living Situation Answer Date Recorded What is your living situation? 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 Not on file Not on file Not on jose carlos e Obstetrics History Para Term AB IAB SAB Ectopic Multiple Livin g Live Births 2 2 2 2 2 Date Outcome GA Total Labor Labor/2nd/3rd Weight Sex Type Anes PTL Steff A1 A5 Name Clin 2010 Term M Vag-S pont Living 2014 Term F Vag-S pont Living Last Filed Vital Signs Vital Sign Reading Time Taken Comments Blood Pressure 110/77 07/10/2025 2:52 PM EDT Pulse 74 07/10/2025 2:52 PM EDT Temperature - - Respiratory Rate - - Oxygen Saturation - - Inhaled Oxygen Concentration - - Weight 86.5 kg (190 lb 9.6 oz) 07/10/2025 2:52 P M EDT Height 170.2 cm (5' 7 ) 07/10/2025 2:52 PM EDT Body Mass Index 29.85 07/10/2025 2:52 PM EDT Plan of Treatment Upcoming Encounters Date Type Department Care Team (Late st Contact Info) Description 08/28/2025 2:45 PM EST Office Visit Obstetrics & Gynecology - [address] [phone] Marielos Metcalf, [facility] [address] [place] [address] Health Maintenance Due Date Last Done Comments Hepatitis B Vaccines (1 of 3 - 19+ 3-dose series) 2010 HPV Vaccines (1 - 3-dose SCDM series) 2018 DTaP,Tdap,and Td Vaccines (2 - Td or Tdap) 03/18/2024 03/18/2014 COVID-19 Vaccine ( season) 2025 10/22/2021, 01/29/2021, 12/31/2020 Influenza Vaccine (#1) 2025 , 07/22/2022, 06/12/2021, Additional history exists Social Influencers of Health Screening 02/04/2026 02/04/2025 Cervical Cancer Screening: HPV 02/02/2029 02/03/2024 Cholesterol Screening (Lipid Panel) 08/15/2029 08/15/2024 RSV Immunization Adult Patients (1 - 1-dose 75+ series) 2066 HIV Screening Completed 01/31/2023, 02/01/2022 Hepatitis C Screening Completed 01/31/2023, 022 Depression Screening Completed 02/04/2025 HIB Vaccines Aged Out No longer eligi ble based on patient's age to complete this topic Hepatitis A Vaccines Aged Out No long er eligible based on patient's age to complete this topic IPV Vaccines Aged Out No longer eligi ble based on patient's age to complete this topic MMR Vaccines Aged Out No longer eligi ble based on patient's age to complete this topic Meningococcal ACWY Vaccine Aged Out N o longer eligible based on patient's age to complete this topic Meningococcal B Vaccine Aged Out No l onger eligible based on patient's age to complete this topic Pneumococcal Vaccine: Pediatrics (0 to 5 Years) and At-Risk Patients (6 to 49 Years) Aged Out No longer eligible based on patient's age to complete this topic RSV Immunization Patients Under 20 months Aged Out No longer eligible based on patient's age to complete this topic Varicella Vaccines Aged Out No longer eligible based on patient's age to complete this topic Procedures Procedure Name Priority Date/Time Associated Diagnosis Comments NJ INSERTION INTRAUTERINE DEVICE Routine 07/10/2025 4:37 PM EDT Encounter for IUD insertion CHLAMYDIA TRACHOMATIS AND NEISSERIA GONORRHOEAE PCR Routine 07/10/2025 3:46 PM EDT Encounter for IUD insertion POC , URINE DIAGNOSTIC Routine 07/10/2025 3:14 PM EDT Encounter for IUD insertion MG MAMMO DIGITAL SCREENING W JOSEP BILAT Routine 06/08/2025 11:12 AM EDT Encounter for screening mammogram for breast cancer MR BREAST WO AND W CONTRAST BILAT Routine 04/22/2025 4:30 PM EDT Encounter for well woman exam with routine gynecological exam BRCA gene mutation positive in female Family history of breast cancer HPV Routine 02/03/2024 HEPATITIS C SCREENING Routine 02/01/2022 HIV SCREENING Routine 02/01/2022 from Last 3 Months or Most Recently Relevant to Health Maintenance Results * NJ INSERTION INTRAUTERINE DEVICE (07/10/2025 4:37 PM EDT) Marielos Witt CNM - 07/10/2025 4:37 PM EDT Marielos Metcalf CNM 07/10/2025 4:46 PM IUD Insertion Date/Time: 07/10/2025 4:37 PM Performed by: Marielos Metcalf CNM Authorized by: Marielos Metcalf CNM Informed Consent: Relevant images/test results available and reviewed: yes Health status cleared: Yes Procedure/treatment, purpose, treatment alternatives, risks/potential complications and benefits explained: yes Risk/complications/benefits details: Per consent form, reviewed today. She denies UPI since LMP- 07/04 Patient questions answered: yes Patient agrees, verbalizes understanding, and wants to proceed: yes Consent given by: Patient Informed consent discussion completed by Physician/GARFIELD with patient: Written; patient signed and dated; copy to patient Pre-procedure timeout performed: yes Pre Procedure: Negative urine test: Yes Negative serum test: Not indicated Gonorrhea/chlamydia test: Collected at time of procedure Uterine position: Anverted Insertion Procedure: Speculum placed in vagina and cervix prepped with: Betadine Cervix stablized: With tenaculum Cervical dilation: no Uterus sounded: yes Uterus sound depth (cm): 7 IUD type: ParaGard IUD insertion successful: yes Medication Administration: 1 Intra Uterine Device copper 380 square mm Hemostasis achieved with: Applied pressure Complications: no Strings trimmed: yes Post-procedure: Patient tolerated procedure well: yes Post procedure instructions given: yes Patient will follow up for string check: yes Comments: Post procedure care reviewed, Tylenol/Motrin PRN. PAINS warning signs reviewed. RTO in 6 weeks for IUD follow up and sooner if needed. Marielos Metcalf CNM Marielos Metcalf CNM IN CLINIC/BEDSIDE ORDERABLES F inal Result * Chlamydia trachomatis and Neisseria gonorrhoeae molecular study (07/10/2025 3:46 PM EDT) Neisseria gonorrhoeae PCR Negative Negative LAB MOLECULAR DIAGNOSTICS METHOD 07/11/2025 9:14 AM EDT [facility] Chlamydia trachomatis PCR Negative Negative LAB MOLECULAR DIAGNOSTICS METHOD 07/11/2025 9:14 AM EDT [facility] Swab Cervix uteri structure / Unknown Non-blood Collection / Unknown 07/10/2025 3:46 PM EDT 07/10/2025 4:11 PM EDT Marielos Metcalf CNM LAB MICROBIOLOGY - GENERAL ORD ERABLES Final Result [facility] [address] [place] [address], [place] [phone] * POC , urine manually resulted (07/10/2025 3:14 PM EDT) HCG, Ur POC Negative Negative POC hCG Int QC Pass? Yes Yes Urine Urine specimen obtained by clean catch procedure / Unknown 07/10/2025 3:14 PM EDT Marielos Metcalf CNM POINT OF CARE TEST ENTER/EDIT ORDERABLES Final Result * MG Mammo Digital Screening w Josep bilat (06/08/2025 11:12 AM EDT) Anatomical Region Laterality Modality Breast Bilateral Mammography 06/11/2025 4:33 PM EDT Impressions 06/11/2025 4:38 PM EDT 1. No mammographic evidence of malignancy 2. Scattered fibroglandular tissue BI-RADS CATEGORY: 2 - BENIGN RECOMMENDATION: Screening bilateral mammogram is recommended in 1 year. Mammo Location: [facility], [address] [place] [address], [id number], . -------- FINAL REPORT -------- Dictated By: Vee Hale Dictated Date: 06/11/2025 16:33 ET Assigned Physician: Vee Hale Reviewed and Electronically Signed By: Vee Hale Signed Date: 06/11/2025 16:38 ET Workstation ID: [id number] Transcribed By: Self Edit Transcribed Date: 06/11/2025 16:33 ET Narrative 06/11/2025 4:38 PM EDT A BILATERAL DIGITAL 3D SCREENING MAMMOGRAPHY HISTORY: Routine screening. Family history of breast cancer in aunt COMPARISON: Multiple priors dating back to 04/28/2023 Technique: Bilateral full field digital mammography (3D) was performed using standard CC and MLO projections , right breast exaggerated CC CAD was used to evaluate this mammogram. FINDINGS: Right: No suspicious masses, groups of microcalcification or areas of architectural distortion identified. Stable typically benign parenchymal asymmetries. Left: No suspicious masses, groups of microcalcification or areas of architectural distortion identified. Stable typically benign parenchymal asymmetries. BREAST DENSITY: B - There are scattered areas of fibroglandular density. Procedure Note Vee Hale MD - 06/11/2025 A BILATERAL DIGITAL 3D SCREENING MAMMOGRAPHY HISTORY: Routine screening. Family history of breast cancer in aunt COMPARISON: Multiple priors dating back to 04/28/2023 Technique: Bilateral full field digital mammography (3D) was performedusing standard CC and MLO projections , right breast exaggerated CC CAD was used to evaluate this mammogram. FINDINGS: Right: No suspicious masses, groups of microcalcification or areas ofarchitectural distortion identified. Stable typically benign parenchymalasymmetries. Left: No suspicious masses, groups of microcalcification or areas ofarchitectural distortion identified. Stable typically benign parenchymalasymmetries. BREAST DENSITY: B - There are scattered areas of fibroglandular density. IMPRESSION: 1. No mammographic evidence of malignancy 2. Scattered fibroglandular tissue BI-RADS CATEGORY: 2 - BENIGN RECOMMENDATION: Screening bilateral mammogram is recommended in 1 year. Mammo Location: [facility], [address] [place] [address], [id number], . -------- FINAL REPORT -------- Dictated By: Vee Hale Dictated Date: 06/11/2025 16:33 ET Assigned Physician: Vee Hale Reviewed and Electronically Signed By: Vee Hale Signed Date: 06/11/2025 16:38 ET Workstation ID: [id number] Transcribed By: Self Edit Transcribed Date: 06/11/2025 16:33 ET us Jethro Breen MD IMG BI PROCEDURES Sheryl l Result * MR Breast wo and w Contrast bilat (04/22/2025 4:30 PM EDT) Anatomical Region Laterality Modality Breast Bilateral Magnetic Resonan ce 04/23/2025 5:45 PM EDT Impressions 04/24/2025 4:12 PM EDT No suspicious mass or suspicious areas of nonmass enhancement. No suspicious interval change Recommend continued annual high risk screening ASSESSMENT: RIGHT BREAST: BI-RADS 1-negative LEFT BREAST: BI-RADS 1-negative RECOMMENDATIONS: Bilateral high risk screening MRI in one year -------- FINAL REPORT -------- Dictated By: Louis Fay Dictated Date: 04/23/2025 17:45 ET Assigned Physician: Louis Fay Reviewed and Electronically Signed By: Louis Fay Signed Date: 04/24/2025 16:12 ET Workstation ID: [id number] Transcribed By: Self Edit Transcribed Date: 04/23/2025 18:00 ET Narrative 04/24/2025 4:12 PM EDT EXAMINATION: MRI BREAST WITHOUT AND WITH CONTRAST, BILATERAL CLINICAL INFORMATION: High risk screening. BRCA2 positive genetic mutation predisposing to development of breast cancer. Family history of breast cancer COMPARISON: Portions of previous 10/20/23 PREVIOUS MAMMOGRAPHY (Non-diagnostic monitor review): 06/02/24 TECHNIQUE: Anatomic and fluid sensitive MR sequences were performed on a 3 Nan platform. Diffusion-weighted sequence was performed. A dynamic series was performed shortly before and after the IV administration of contrast. Subtracted imaging was reviewed. Color signal and kinetic analysis was performed on a dedicated software platform ([employer]) Imaging before and after the IV administration of contrast. Type of contrast: Dotarem Amount of contrast: 20 mL Volume of contrast discarded: 0 mL FINDINGS: FIBROGLANDULAR SIGNAL: There are scattered areas of fibroglandular signal BACKGROUND PARENCHYMAL ENHANCEMENT: There is a moderate amount of background parenchymal enhancement SYMMETRY OF ENHANCEMENT: The background enhancement is symmetric RIGHT BREAST: There are no suspicious right breast findings Masses: There are no suspicious right breast masses Nonmass enhancement: There are no suspicious areas of nonmass enhancement within the right breast Enhancing foci: There are no suspicious enhancing foci in the right breast. Other: There are no suspicious additional findings in the right breast Color signal and enhancement kinetics: There are no suspicious areas of color signal. There are no areas of washout kinetics LEFT BREAST: There are no suspicious left breast findings. Masses: There are no suspicious left breast masses. Nonmass enhancement: There are no suspicious areas of nonmass enhancement within the left breast. Enhancing foci: There are a few nonspecific enhancing foci in the left breast. Other: There are no other suspicious left breast findings Color signal and enhancement kinetics: There are no suspicious areas of color signal. There are no suspicious areas of washout kinetics AXILLA: There are no enlarged axillary lymph nodes VISUALIZED ABDOMEN: There are no suspicious findings in the visualized portions of the abdomen. VISUALIZED CHEST: There are no suspicious findings in the visualized portions of the chest. Procedure Note Louis Fay MD - 04/24/2025 EXAMINATION: MRI BREAST WITHOUT AND WITH CONTRAST, BILATERAL CLINICAL INFORMATION: High risk screening. BRCA2 positive genetic mutation predisposing todevelopment of breast cancer. Family history of breast cancer COMPARISON: Portions of previous 10/20/23 PREVIOUS MAMMOGRAPHY (Non-diagnostic monitor review): 06/02/24 TECHNIQUE: Anatomic and fluid sensitive MR sequences were performed on a 3 Teslaplatform. Diffusion-weighted sequence was performed. A dynamic series wasperformed shortly before and after the IV administration of contrast.Subtracted imaging was reviewed. Color signal and kinetic analysis was performed on a dedicated softwareplatform ([employer]) Imaging before and after the IV administration of contrast. Type of contrast: Dotarem Amount of contrast: 20 mL Volume of contrast discarded: 0 mL FINDINGS: FIBROGLANDULAR SIGNAL: There are scattered areas of fibroglandular signal BACKGROUND PARENCHYMAL ENHANCEMENT: There is a moderate amount ofbackground parenchymal enhancement SYMMETRY OF ENHANCEMENT: The background enhancement is symmetric RIGHT BREAST: There are no suspicious right breast findings Masses: There are no suspicious right breast masses Nonmass enhancement: There are no suspicious areas of nonmass enhancementwithin the right breast Enhancing foci: There are no suspicious enhancing foci in the rightbreast. Other: There are no suspicious additional findings in the right breast Color signal and enhancement kinetics: There are no suspicious areas ofcolor signal. There are no areas of washout kinetics LEFT BREAST: There are no suspicious left breast findings. Masses: There are no suspicious left breast masses. Nonmass enhancement: There are no suspicious areas of nonmass enhancementwithin the left breast. Enhancing foci: There are a few nonspecific enhancing foci in the leftbreast. Other: There are no other suspicious left breast findings Color signal and enhancement kinetics: There are no suspicious areas ofcolor signal. There are no suspicious areas of washout kinetics AXILLA: There are no enlarged axillary lymph nodes VISUALIZED ABDOMEN: There are no suspicious findings in the visualizedportions of the abdomen. VISUALIZED CHEST: There are no suspicious findings in the visualizedportions of the chest. IMPRESSION: No suspicious mass or suspicious areas of nonmass enhancement. No suspicious interval change Recommend continued annual high risk screening ASSESSMENT: RIGHT BREAST: BI-RADS 1-negative LEFT BREAST: BI-RADS 1-negative RECOMMENDATIONS: Bilateral high risk screening MRI in one year -------- FINAL REPORT -------- Dictated By: Louis Fay Dictated Date: 04/23/2025 17:45 ET Assigned Physician: Louis Fay Reviewed and Electronically Signed By: Louis Fay Signed Date: 04/24/2025 16:12 ET Workstation ID: [id number] Transcribed By: Self Edit Transcribed Date: 04/23/2025 18:00 ET Mami Moya CNM IMG MRI PROCEDURES Final Resu lt * Cervical Cancer Screening: HPV (02/03/2024) [facility] Cervical Cancer Screening: HPV negative, abstracted [facility] Provider HEALTH MAINTENANCE Final Result * HIV Screening (02/01/2022) [facility] HIV Screening abstracted [facility] Provider HEALTH MAINTENANCE Final Result * Hepatitis C Screening (02/01/2022) [facility] Hepatitis C Screening abstracted [facility] Provider HEALTH MAINTENANCE Final Result from Last 3 Months or Most Recently Relevant to Health Maintenance Insurance [facility] [place] [id number] [place]ICA[place] Member Subscriber Plan / Payer (Ef fective 2024-Present) Name:FELICIA ORTEGASTIVEN Relation to Subscriber:Self Name:Lemuel Ortega Payer ID:[id number] Group ID:Not on file Type:Not on file Address: [facility] ATTN:[employer] [address] [place] [address] Care Teams Hull Molder Relationship Specialty Start Date End Date Jethro Breen MD [address] [place], [place] PCP - General Internal Medicine 04/12/19
--- OUTSIDE RECORDS SUMMARY | 2025-07-22 16:37 | XMS_ITS | Encounter Summary ---
Author Organization [employer] Address [address] [place] [address] Care Team Providers Care Silver Cleaner Name Role Phone Griselda Juarez MD Primary Care Provider [phone] Encounter Details Date Type Department Care Team (Late st Contact Info) Description 10/25/2024 Orders Only [facility] [address] [place] [address] ProviderJuany MD Social History Tobacco Use Types Packs/Day Years [...] is your housing situation today? I have latashasarah beth de paz 02/07/[address] [...] on file documented as of this encounter Procedures Procedure Name Priority Date/Time Associated Diagnosis Comments HM PAP/HPV Routine 02/03/2024 1:55 PM EDT documented in this encounter Results * HM PAP/HPV (02/03/2024 1:55 PM EDT) us Historical Provider HEALTH MAINTENANCE Final Result documented in this encounter Visit Diagnoses Not on filedocumented in this encounter Additional Health Concerns Assessment Noted Time PHQ-9 Depression Total Score: 0 02/14/20 10:48 AM EDT documented as of this encounter Care Teams Silver Cleaner Relationship Specialty Start Date End Date Griselda Juarez MD [address] [place] [address] PCP - General Family Medicine 05/05/21 documented as of this encounter
--- OUTSIDE RECORDS SUMMARY | 2025-07-22 16:37 | XMS_ITS | Encounter Summary ---
Author Organization [facility] Address [address] [place] [address] Care Team Providers Care Home Appraiser Name Role Phone Jethro Breen MD Primary Care Provider Encounter Details Date Type Department Care Team ([facility] st Contact Info) Description 07/12/2025 Results Follow-Up Obstetrics and Gynecology - [place] [place], [place] [phone] Marielos Metcalf, [facility] [address] [place], [place] Social History Tobacco Use Types Packs/Day Years [...] care for your loved ones. For example, childhood development teacher or elderly care for an older adult? 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 Not on file Not on jose carlos e documented as of this encounter Plan of Treatment Upcoming Encounters Date Type Department Care Team (Late st Contact Info) Description 08/28/2025 2:45 PM EST Office Visit Obstetrics & Gynecology - [address] [address] Marielos Metcalf, [facility] [place] [address] documented as of this encounter Visit Diagnoses Not on filedocumented in this encounter Additional Health Concerns Assessment Noted Time PHQ-9 Depression Total Score: 0 02/05/20 25 2:30 PM EDT documented as of this encounter Care Teams Home Appraiser Relationship Specialty Start Date End Date Jethro Breen MD [address] [place] [address] PCP - General Internal Medicine 04/12/19 documented as of this encounter
--- OUTSIDE RECORDS SUMMARY | 2025-07-22 16:37 | XMS_ITS | Encounter Summary ---
Author Organization [employer] Address [address] [place] [address] Care Team Providers Care Mica Layer Name Role Phone Griselda Juarez MD Primary Care Provider [phone] Reason for Referral * Consultation (STAT) - Closed Specialty Diagnoses / Procedures Referred By Simran aguillon Referred To Contact Obstetrics and Gynecology Diagnoses Encounter for IUD insertion Griselda Juarez MD [address] [place] [address] Phone: tel: fax: Mami Moya CN [address] [facility] [place] [address] Phone: tel: Referral ID Status Reason Start Date Expiration Date V isits Requested Visits Authorized [id number] Closed Specialty Services Required 04/22/2025 04/22/2026 9 9 Encounter Details Date Type Department Care Team (Late st Contact Info) Description 04/19/2025 Orders Only [facility] [address] [place] [address] Griselda Juarez MD [address] [place], [place] [phone] Encounter for IUD insertion (Primary Dx) Social History Tobacco Use Types [...] of this encounter Plan of Treatment Scheduled Referrals Name Type Priority Associated Diagnoses Order Schedule Referral to Obstetrics / Gynecology Outpatient Referral STAT Encounter for IUD insertion Expected: 04/19/2025 (Approximate), Expires: 04/19/2026 documented as of this encounter Visit Diagnoses Diagnosis Encounter for IUD insertion- Primary Insertion of intrauterine contraceptive device documented in this encounter Additional Health Concerns Assessment Noted Time PHQ-9 Depression Total Score: 0 02/14/20 24 10:48 AM EDT documented as of this encounter Care Teams Mica Layer Relationship Specialty Start Date End Date Griselda Juarez MD [address] [place] [address] PCP - General Family Medicine 05/05/21 documented as of this encounter
[2025-07-22 16:58] LABS: Alanine Aminotransferase 15 U/L (0-31); Albumin Level 4.5 g/dL (3.5-5.0); Alkaline Phosphatase 66 U/L (39-117); Anion Gap 10 (12-20); Aspartate Amino Transferase 21 U/L (5-31); Blood Urea Nitrogen 8 mg/dL (9-16); Calcium 9.5 mg/dL (8.4-10.2); Carbon Dioxide 25 mmol/L (22-29); Chloride 107 mmol/L (96-108); Estimated Glomerular Filt Rate > 60; Potassium 3.9 mmol/L (3.3-5.1); Sodium 138 mmol/L (135-145); Total Protein 7.3 g/dL (6.5-8.0)
== END 2025-07-22 14:16 | disposition home or self-care (01) ==
LOC: HO.HHCL 14:15
PROVIDERS: PCP General Practice; Visit Provider General Practice
DX: E66.3 Overweight (principal)
CPT/HCPCS: 36415; 80053; 83036; 84443